=== PATIENT | male | born 1955 | race Caucasian/White ===

== ENCOUNTER 2017-08-26 11:10 | Inpatient (IN) | payer OTHER ==
[~2017-08-26] VITALS: Ht 170.2 cm; Wt 124.5 kg
[~2017-08-26 11:10] MED LIST: GOOD SENSE IBU200 MG PO; KEFLEX 250MG C250 MG PO; LISINOPRIL10 MG PO
--- NOTE | 2017-08-26 12:06 | RADIOLOGY REPORT ---
EXAMINATION: XR CHEST CLINICAL INFORMATION: Improved alignment. Pulmonary symptoms. COMPARISON: Previous chest x-ray most recent May 2015 TECHNIQUE: 2 views of the chest were obtained. FINDINGS: The cardiac silhouette is enlarged but stable. The lung volumes are low. Hilar markings are prominent. It is uncertain whether this is related to low lung volumes. The lungs are otherwise clear. There is no pleural effusion or pneumothorax. Bony structures are unremarkable. IMPRESSION: Stable enlargement of the cardiac silhouette. Low lung volumes. Prominent hilar markings, question related to low lung volumes.
--- NOTE | 2017-08-26 14:40 | ED GENERAL ADULT ---
See Addendum History of Present Illness General Chief Complaint: General Adult Stated Complaint: +FLU "STILL HAVE A COUGH" Source: patient, family Exam Limitations: no limitations Vital Signs & Intake/Output Vital Signs & Intake/Output Vital Signs Date Time Temp Pulse Resp B/P B/P Pulse O2 O2 Flow FiO2 Mean Ox Delivery Rate 08/27 0842 Room Air Room Air 08/27 0800 Nasal 2.0L Cannula 08/27 0713 98.7 101 20 144/100 94 Nasal 2.0L Cannula 08/26 2355 100.2 08/26 2335 93 Nasal 2.0L Cannula 08/26 2318 100.2 113 22 132/88 93 Nasal 3.0L Cannula 08/26 2241 101.2 122 19 159/88 98 Room Air 08/26 2106 100.9 111 20 151/69 95 Room Air 08/26 1722 110 22 181/90 94 Room Air 08/26 1637 91 08/26 1537 99.0 114 32 192/100 92 Room Air 08/26 1447 Room Air ED Intake and Output 08/27 0000 08/26 1200 Intake Total 360 Output Total 300 Balance 60 Intake, Oral 360 Output, Urine 300 Patient 274 lb 275 lb Weight Weight Reported by Patient Measurement Method Allergies Coded Allergies: NO KNOWN ALLERGIES (06/01/15) Triage Note: PER PT BEEN OUT OF WORK SINCE LAST SATURDAY AND COUGH WANT TO BE CHECKED FOR FLU. ALSO RT KNEE LOCKED UP LAST WEEK AND CANT WT BEAR Triage Nurses Notes Reviewed? yes Onset: Gradual Duration: week(s): (1.5) Timing: remote history Injury Environment: home Severity: moderate Severity Numbers: 6 HPI: Patient is a 62-year-old male with history of dependent edema, hypertension presenting to the emergency department should complaint of intermittently productive cough, slight shortness of breath and generalized malaise has been going for the past one and half weeks. Patient reports that he had flulike symptoms approximately one and a half weeks ago with body aches chills. He reports that he had an intermittent cough during a period of time. He reports that the fevers and chills and body aches resolved after several days and then the cough persisted. Patient came in today for evaluation of persistent cough. Worse when laying flat. Patient denies any increasing lower extremity swelling. No chest pain or palpitations. Patient does report intermittent shortness of breath, worse with coughing. Also reporting right knee pain after twisting it a few days ago. Denies any actual falls. No numbness or tingling. Denies any back pain arm pain and jaw pain. Eating and drinking without difficulties. (Marisol Kumar) Reconcile Medications Ibuprofen 200 MG TAB 2 TAB PO PRN PAIN (Reported) Lisinopril 10 MG TAB 1 TAB PO DAILY High blood pressure (Arianna LE,Danisha) Past History Travel History Traveled to [place] past 21 day No Medical History Any Pertinent Medical History? 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 No (Marisol Kumar) Review of Systems Review of Systems Constitutional: Reports: see HPI, malaise. Comments Review of systems: See HPI, All other systems negative. Constitutional, no weight loss HEENT: No visual changes no sore throat no congestion Cardiovascular: No chest pain ,palpitation Skin, no jaundice no rashes Respiratory: No hemoptysis GI: No nausea no vomiting : No dysuria No hematuria Muscle skeletal: no back pain, no neck pain, Neurologic: No numbness no confusion no headaches Psych: No stress anxiety or depression,. Heme/endocrine: No bruising no bleeding no polyuria or polydipsia Immunology: No splenectomy or history of AIDS (Marisol Kumar) Physical Exam Physical Exam General Appearance: alert, awake, mild distress Comments: Obese person, in mild/mod distress HEENT: Pupils equally round and reactive to light and accommodation. Nose is atraumatic. External auditory canal and Tympanic membranes clear. Pharynx normal. No swelling or edema. Neck: Normal inspection, full range of motion. Back: Nontender Cardiovascular: Regular rate and rhythms no murmurs rubs or gallops, normal JVP Respiratory: Chest nontender. Moderate respiratory distress.menaced breath sounds bilaterally to auscultation. Increased work of breathing. Use of abdominal wall muscles for breathing. Abdomen: Soft, obese, nontender nondistended, no appreciable organomegaly. Normal bowel sounds. Extremity: 3 plus plus pitting edema in the lower extremities bilaterally. No calf pain to palpation bilaterally. Chronic venous stasis changes noted in the lower extremities bilaterally. Healing scab-like lesion approximately 5 cm in size, circular noted on the anterior left ramos just above the anterior ankle. Neuro: Alert oriented x3, motor sensory normal, cranial nerves II through XII grossly intact. Skin: No appreciable rash on exposed skin, skin is warm and dry. Psych: Mood and affect is normal, memory and judgment is normal. Core Measures ACS in differential dx? Yes CVA/TIA Diagnosis: No Sepsis Present: No Sepsis Focused Exam Completed? No (Cleo MONTERROSO,Marisol) Progress Differential Diagnoses I considered the following diagnoses in my evaluation of the patient: Bronchitis, pneumonia, pulmonary embolus, ACS, DVT, CHF, electrolyte abnormality , lung CA Plan of Care: Orders Procedure Date/time Status CBC WITHOUT DIFFERENTIAL 08/28 1149 Active BASIC ELECTROLYTES PLUS BUN&CR 08/28 1149 Active Regular Diet 08/27 D Active Nothing by Mouth 08/27 B Complete ECHOCARDIOGRAM 08/27 2116 Active PARTIAL THROMBOPLASTIN TIME 08/27 1010 Complete CULTURE,URINE 08/27 0950 Active URINALYSIS 08/27 0950 Active RT: Reevaluation 08/27 0841 Active RT: Evaluation 08/27 0841 Active GLYCOSYLATED HGB 08/27 0600 Complete CBC WITHOUT DIFFERENTIAL 08/27 0600 Complete Heparin Drip- AFIB/FLUTTER/PE/ 08/27 0431 Active URIC ACID 08/27 0415 Complete LIPID PANEL 08/27 0415 Complete HEPATITIS PANEL 08/27 0415 Complete BASIC ELECTROLYTES PLUS BUN&CR 08/27 0415 Complete TROPONIN LEVEL 08/27 0400 Complete EKG 08/27 0400 Active PARTIAL THROMBOPLASTIN TIME 08/27 0150 Complete LOWER RESPIRATORY CULTURE 08/27 0056 Active US-COMPLETE ABDOMEN 08/27 UNK Active THERAPIST ORDERS 08/27 UNK Complete Change service to 08/27 UNK Active Lab Add-on Test 08/27 UNK Active Vital Signs 08/26 233 Active Teach/Educate 08/26 2334 Active Pain Treatment and Response 08/26 2334 Active Nutritional Intake, Monitor 08/26 2334 Active Isolation 08/26 2334 Active Intake & Output 08/26 2334 Active Patient Care Conference 08/26 2334 Active Activity/Ambulation 08/26 2334 Active BLOOD CULTURE 08/26 2251 Active TROPONIN LEVEL 08/26 220 Complete SODIUM 08/26 220 Complete EKG 08/26 220 Active Intake & Output 08/26 2137 Active Pathway - chart 08/26 2110 Active House Staff 08/26 2110 Active Patient Data 08/26 2110 Active Patient Data 08/26 2032 Active ED Holding Orders 08/26 1934 Active Admit to inpatient 08/26 193 Active Vital Signs 08/26 193 Active Code Status 08/26 193 Active D-DIMER 08/26 1620 Complete PARTIAL THROMBOPLASTIN TIME 08/26 1556 Complete PROTHROMBIN TIME 08/26 1556 Complete Telemetry/Churn Tender 08/26 1550 Active TROPONIN LEVEL 08/26 1550 Complete COMPREHENSIVE METABOLIC PANEL 08/26 1550 Complete CBC WITHOUT DIFFERENTIAL 08/26 1550 Complete B-TYPE NATRIURETIC PEP (BNP) 08/26 1550 Complete EKG 08/26 1550 Active TRC EVALUATION (GEN) 08/26 UNK Complete VTE Mechanical Prophylaxis 08/26 UNK Active Current Medications Sig/Laya Start time Last Medication Dose Stop Time Status Admin Lisinopril 10 MG DAILY 08/27 1141 AC (Prinivil) Albuterol Sulfate 3 ML Q4P PRN 08/27 0900 AC (Proventil) Ibuprofen 800 MG 4 TIMES/DAY PRN 08/27 0715 AC (Motrin) Azithromycin 500 MG DAILY 08/26 2358 AC 08/27 (Zithromax) 0828 Dextrose/Water 250 ML (D5W) Ceftriaxone Sodium 1,000 MG DAILY 08/26 2358 AC 08/27 (Rocephin) 0829 Heparin Sodium 25,000 UNIT Q24H 08/26 191 AC 08/26 (Porcine) 1950 (Heparin) Sodium Chloride 500 ML Laboratory Tests 08/27/17 1110: APTT 41 H 08/27/17 1105: Urine Color Pending, Urine Clarity Pending, Urine pH Pending, Ur Specific Creola Pending, Urine Protein Pending, Urine Ketones Pending, Urine Nitrite Pending, Urine Bilirubin Pending, Urine Urobilinogen Pending, Ur Leukocyte Esterase Pending, Ur Microscopic SEDIMENT EXAMINED, Urine RBC Pending, Urine Hemoglobin Pending, Urine Glucose Pending 08/27/17 0600: Hemoglobin A1c 5.7 08/27/17 0415: Sodium Cancelled, Potassium Cancelled, Chloride Cancelled, Carbon Dioxide Cancelled, Anion Gap Cancelled, BUN Cancelled, Creatinine Cancelled, BUN/ Creatinine Ratio Cancelled 08/27/17414: Anion Gap 14, Estimated GFR > 60, BUN/Creatinine Ratio 20.0, Uric Acid 6.5, Troponin I 0.04, Triglycerides 91, Cholesterol 131, LDL Cholesterol, Calc 83, HDL Cholesterol 30 L, Cholesterol/HDL Ratio 4, CBC w Diff NO MAN DIFF REQ, RBC 4.78, MCV 84.8, MCH 27.0, MCHC 31.9 L, RDW 15.3 H, MPV 7.6, Gran % 75.1, Lymphocytes % 9.8 L, Monocytes % 12.6 H, Eosinophils % 2.1, Basophils % 0.4, Absolute Granulocytes 12.6 H, Absolute Lymphocytes 1.7, Absolute Monocytes 2.1 H, Absolute Eosinophils 0.4, Absolute Basophils 0.1, Hepatitis A IgM Ab NONREACTIVE, Hep Bs Antigen NONREACTIVE, Hep B Core IgM Ab Conf NONREACTIVE, Hepatitis C Antibody NONREACTIVE 08/27/17 0215: APTT 27 08/26/17 2218: Troponin I 0.04 08/26/17 1620: Anion Gap 17 H, Estimated GFR > 60, BUN/Creatinine Ratio 21.3, Glucose 120 H, Calcium 9.2, Total Bilirubin 1.8 H, AST 72 H, ALT 132 H, Alkaline Phosphatase 273 H, Troponin I 0.02, Ysx-C-Aodswsldiwg Pept 1850 H, Total Protein 7.1, Albumin 3.6, Globulin 3.5, Albumin/Globulin Ratio 1.0 L, PT 14.9 H, INR 1.42 H, APTT 31, D-Dimer High Sensitivty 858 H, CBC w Diff MAN DIFF ORDERED, RBC 4.87, MCV 84.8, MCH 27.4, MCHC 32.3 L, RDW 15.3 H, MPV 7.3 L, Gran % 84.3 H, Lymphocytes % 6.7 L, Monocytes % 8.3, Eosinophils % 0.7, Basophils % 0, Absolute Granulocytes 15.1 H, Segmented Neutrophils 81 H, Absolute Lymphocytes 1.2, Lymphocytes 8 L, Monocytes 9, Absolute Monocytes 1.5 H, Eosinophils 1, Absolute Eosinophils 0.1, Basophils 1, Absolute Basophils 0, Platelet Estimate VERIFIED BY SMEAR, Normocytic RBCs VERIFIED, Normochromic RBCs VERIFIED 08/26/17 1550: D-Dimer High Sensitivty Cancelled Microbiology 08/27 1105 URINE ROUT: Urine Culture - RECD 08/27 55 LOWER RESP: Respiratory Culture - COLB 08/27 55 LOWER RESP: Gram Stain - COLB 08/26 2253 BLOOD: Blood Culture - RES 08/26 2243 BLOOD: Blood Culture - RES Patient informed of all lab work results and imaging study results. IV heparin initiated secondary to pulmonary embolus. Patient reports that he did receive some relief with breathing treatment. No signs of hepatomegaly on CT scan. No signs of gallstones or dilated common bile duct. Patient did deny EtOH use. Diagnostic Imaging: Viewed by Me: Radiology Read. Discussed w/RAD: Radiology Read. Radiology Impression: PRESENT AGE: 62 PATIENT ACCOUNT NO: [id number] : 54 LOCATION: [facility] ORDERING PHYSICIAN: Marisol MONTERROSO SERVICE DATE: EXAM TYPE: RAD - XRY-KNEE COMPLETE RIGHT EXAMINATION: XR KNEE, RIGHT CLINICAL INFORMATION: Pain status post twisting of the knee COMPARISON: None TECHNIQUE: Four views of the right knee. FINDINGS: Mild to moderate lateral compartment joint space narrowing. Small to moderate suprapatellar joint effusion. There is dystrophic calcification of the patellar tendon. Osteopenia. No acute fracture or dislocation seen. IMPRESSION: No acute osseous abnormality. Small to moderate suprapatellar joint effusion. Lateral compartment degenerative arthrosis. Dystrophic calcifications within the patellar tendon. DICTATED BY: Pb Simon MD DATE/TIME DICTATED:08/26/171556 DOUBLE CUT SAWYER:KAR DATE/TIME TRANSCRIBED:08/26/171556 CONFIDENTIAL, DO NOT COPY WITHOUT APPROPRIATE AUTHORIZATION. <Electronically signed in Other Vendor System> SIGNED BY: Pb Simon MD 08/26/17 1603, PATIENT: SHA QUINTANA PRESENT AGE: 62 PATIENT ACCOUNT NO: [id number] : 54 LOCATION: ER ORDERING PHYSICIAN: Marisol MONTERROSO SERVICE DATE: 08/26/17170 EXAM TYPE: CAT - CT ABD & PELVIS W IV CONTRAST; CTA CHEST-PULMONARY EMBOLISM EXAMINATION: CT CHEST, ABDOMEN AND PELVIS WITH CONTRAST CLINICAL INFORMATION: Reason for Study:
Presumptive Dx: RO PE
Signs Symptoms: SOB , TACHY
. COMPARISON: No pertinent prior studies are available for comparison. TECHNIQUE: Multidetector volumetric imaging was performed from the thoracic inlet through the pubic symphysis following administration of oral and 100 mL Omnipaque 300 intravenous contrast. Sagittal and coronal reformatted images were obtained on the technologist workstation. DLP: 2132.91 mGy-cm FINDINGS: CHEST: VASCULAR STRUCTURES: Linear filamentous appearing filling defect noted in the anterior segmental right lower lobe pulmonary artery (series 2 image 200) consistent with acute pulmonary embolism. No evidence of central thrombosis. Aorta is within normal limits. Atherosclerotic disease with intimal calcification of left anterior descending coronary artery.. LUNG: Patchy groundglass opacification mosaic perfusion bilateral lungs.. Atelectatic changes noted in the lingular segment. Minor scarring. No acute airspace opacity. Subpleural partially fatty nodular opacity lingular segment (series 3 image 29) measuring approximately 0.8 cm.. MEDIASTINUM: Enlarged lymph nodes posterior mediastinum along the right lateral aspect of the esophagus measuring approximately 0.8 cm in short axis. (Series 201 image 64). Lymph node demonstrates subtle central low-attenuation (series 4 image 11). Mild prominence of the hilar nodes without any gross lymphadenopathy. Mildly enlarged subcarinal lymph node. PERICARDIUM/PLEURA: No significant effusion. No pleural mass or thickening. CHEST WALL/AXILLA: Unremarkable. ABDOMEN/PELVIS: LIVER, GALLBLADDER, BILIARY TREE: The liver is normal in size, shape, and attenuation. No focal hepatic lesion or biliary ductal dilatation is present. No evidence of cholelithiasis or acute cholecystitis. Common bile duct is within normal limits. PANCREAS: Punctate calcification noted in the body and tail of the pancreas may represent sequela of prior pancreatitis. SPLEEN: Unremarkable. ADRENAL GLANDS: Focal prominence of the left adrenal gland measuring approximately 1.6 cm. This represents an interval change. Dedicated adrenal CT scan or MRI recommended. KIDNEYS AND URETERS: Punctate nonobstructing calculi right kidney. No evidence of obstructive uropathy. Cortical low-attenuation mid to lower left kidney too small to be accurately characterize. BLADDER: Unremarkable. GASTROINTESTINAL TRACT: Colonic diverticulosis. No evidence of acute diverticulitis. Bilateral inguinal hernia, left greater than right containing loop of sigmoid colon. Hernia sac demonstrates white matter with no definite evidence of incarceration or strangulation. Fat-containing right inguinal hernia. Fat-containing umbilical hernia. No definite evidence of acute bowel pathology. LYMPHOVASCULAR STRUCTURES : Minor prominence of the peripancreatic and epigastric lymph nodes. No gross lymphadenopathy. Enlarged probably reactive lymph nodes bilateral inguinal regions, left greater than right. Some of the nodes demonstrate fatty hilum... PELVIC VISCERA: Enlarged prostate gland measuring approximately 5.2 cm. OSSEUS STRUCTURES: Degenerative changes lower thoracic and lumbar spine. No acute osseous abnormality. IMPRESSION: 1. Acute pulmonary embolism heterogeneous segment right lower lobe pulmonary artery. 2.. Mosaic perfusion bilateral lungs. Subpleural partially fatty-appearing nodular opacity lingular segment measuring 0.8 cm. Close monitoring with follow-up CT chest in [address] recommended. 3. Enlarged posterior mediastinal right paraesophageal lymph nodes.. Limited assessment of the adjacent esophagus. Clinical correlation and if needed endoscopic evaluation may be of value. 4. Enlarged subcarinal lymph node. 5. Punctate nonobstructing right renal calculi. 6. Focal enlargement left adrenal gland measuring 1.6 cm represents an interval change. It can be further assessed with dedicated adrenal CT scan or MRI. 7. Left inguinal hernia containing loop of sigmoid colon. No gross evidence of strangulation. Fat- containing right inguinal hernia. 8. Prominent external iliac and bilateral inguinal lymph nodes may represent reactive change. Clinical correlation and monitoring recommended. Critical results discussed with Dr. Gallo at 6:35 PM on 08/26/2017. DICTATED BY: Zuleika Moore MD DATE/TIME DICTATED:08/26/171816 DOUBLE CUT SAWYER:KAR DATE/TIME TRANSCRIBED:08/26/171816 CONFIDENTIAL, DO NOT COPY WITHOUT APPROPRIATE AUTHORIZATION. <Electronically signed in Other Vendor System> SIGNED BY: Zuleika Moore MD 08/26/17 Initial ED EKG: sinus tachycardia at 114 bpm, nonspecific T-wave changes in the lateral leads. (Marisol Kumar) Departure Departure Time of Disposition: 1915 Disposition: STILL A PATIENT Condition: Stable Clinical Impression Primary Impression: Pulmonary embolus Qualifiers: Pulmonary embolism type: other Chronicity: acute Acute cor pulmonale presence: without acute cor pulmonale Qualified Code: I26.99 - Other pulmonary embolism without acute cor pulmonale Secondary Impressions: Transaminitis Referrals: Bilori MD,Bilori (PCP/Family) Departure Forms: Customer Survey General Discharge Information Admission Note Spoke With: Dario Coulter MD Documentation of Exam: Documentation of any treatments & extenuating circumstances including Concerns Regarding Discharge (functional status, medication knowledge or non-compliance, living conditions, etc.) that warrant an admission rather than observation: Patient requiring IV heparinization for pulmonary embolism, telemetry monitoring secondary to tachycardia, cardiology and vascular consultation, medication management, discharge at this time is medically harmful secondary to likely out of worsening symptoms which could lead to . (Marisol Kumar) PA/FAN BLADE TRUER Co-Sign Statement Statement: ED Attending supervision documentation- [X] I saw and evaluated the patient. I have also reviewed all the pertinent lab results and diagnostic results. I agree with the findings and the plan of care as documented in the PA's/FAN BLADE TRUER's documentation. [X] I have reviewed the ED Record and agree with the PA's/FAN BLADE TRUER's documentation. [] Additions or exceptions (if any) to the PAs/FAN BLADE TRUER's note and plan are summarized below: [] (Arianna LE,Danisha) Critical Care Note Critical Care Note Critical Care Time: 30-74 min (Marisol Kumar)
--- NOTE | 2017-08-26 16:03 | RADIOLOGY REPORT ---
EXAMINATION: XR KNEE, RIGHT CLINICAL INFORMATION: Pain status post twisting of the knee COMPARISON: None TECHNIQUE: Four views of the right knee. FINDINGS: Mild to moderate lateral compartment joint space narrowing. Small to moderate suprapatellar joint effusion. There is dystrophic calcification of the patellar tendon. Osteopenia. No acute fracture or dislocation seen. IMPRESSION: No acute osseous abnormality. Small to moderate suprapatellar joint effusion. Lateral compartment degenerative arthrosis. Dystrophic calcifications within the patellar tendon.
[2017-08-26 16:31] LABS: ABSOLUTE BASOPHIL COUNT 0 /CUMM (0.0-0.2); ABSOLUTE EOSINOPHIL COUNT 0.1 /CUMM (0.0-0.7); ABSOLUTE GRANULOCYTE CT 15.1 /CUMM (1.4-6.5); ABSOLUTE LYMPH COUNT 1.2 /CUMM (1.2-3.4); ABSOLUTE MONOCYTE COUNT 1.5 /CUMM (0.10-0.60); BASOPHIL % 0 % (0.0-2.0); EOSINOPHIL % 0.7 % (0-5); GRANULOCYTE % 84.3 % (42.2-75.2); HEMATOCRIT 41.3 % (42-52); MEAN CORPUSCULAR HGB 27.4 PG (27.0-31.0); MEAN CORPUSCULAR HGB CONC 32.3 G/DL (33.0-37.0); MEAN CORPUSCULAR VOLUME 84.8 FL (80.0-94.0); MEAN PLATELET VOLUME 7.3 FL (7.4-10.4); PLATELET COUNT 312 /CUMM (130-400); RBC DISTRIBUTION WIDTH 15.3 % (11.5-14.5); RED BLOOD CELL CT 4.87 /CUMM (4.70-6.10)
[2017-08-26 16:41] LABS: PT 14.9 SEC (9.4-12.5); PTT 31 SEC (25-37)
--- NOTE | 2017-08-26 18:55 | CT SCAN REPORT ---
EXAMINATION: CT CHEST, ABDOMEN AND PELVIS WITH CONTRAST CLINICAL INFORMATION: Reason for Study:
Presumptive Dx: RO PE
Signs Symptoms: SOB, TACHY
. COMPARISON: No pertinent prior studies are available for comparison. TECHNIQUE: Multidetector volumetric imaging was performed from the thoracic inlet through the pubic symphysis following administration of oral and 100 mL Omnipaque 300 intravenous contrast. Sagittal and coronal reformatted images were obtained on the technologist workstation. DLP: 2132.91 mGy-cm FINDINGS: CHEST: VASCULAR STRUCTURES: Linear filamentous appearing filling defect noted in the anterior segmental right lower lobe pulmonary artery (series 2 image 200) consistent with acute pulmonary embolism. No evidence of central thrombosis. Aorta is within normal limits. Atherosclerotic disease with intimal calcification of left anterior descending coronary artery.. LUNG: Patchy groundglass opacification mosaic perfusion bilateral lungs.. Atelectatic changes noted in the lingular segment. Minor scarring. No acute airspace opacity. Subpleural partially fatty nodular opacity lingular segment (series 3 image 29) measuring approximately 0.8 cm.. MEDIASTINUM: Enlarged lymph nodes posterior mediastinum along the right lateral aspect of the esophagus measuring approximately 0.8 cm in short axis. (Series 201 image 64). Lymph node demonstrates subtle central low-attenuation (series 4 image 11). Mild prominence of the hilar nodes without any gross lymphadenopathy. Mildly enlarged subcarinal lymph node. PERICARDIUM/PLEURA: No significant effusion. No pleural mass or thickening. CHEST WALL/AXILLA: Unremarkable. ABDOMEN/PELVIS: LIVER, GALLBLADDER, BILIARY TREE: The liver is normal in size, shape, and attenuation. No focal hepatic lesion or biliary ductal dilatation is present. No evidence of cholelithiasis or acute cholecystitis. Common bile duct is within normal limits. PANCREAS: Punctate calcification noted in the body and tail of the pancreas may represent sequela of prior pancreatitis. SPLEEN: Unremarkable. ADRENAL GLANDS: Focal prominence of the left adrenal gland measuring approximately 1.6 cm. This represents an interval change. Dedicated adrenal CT scan or MRI recommended. KIDNEYS AND URETERS: Punctate nonobstructing calculi right kidney. No evidence of obstructive uropathy. Cortical low-attenuation mid to lower left kidney too small to be accurately characterize. BLADDER: Unremarkable. GASTROINTESTINAL TRACT: Colonic diverticulosis. No evidence of acute diverticulitis. Bilateral inguinal hernia, left greater than right containing loop of sigmoid colon. Hernia sac demonstrates white matter with no definite evidence of incarceration or strangulation. Fat-containing right inguinal hernia. Fat-containing umbilical hernia. No definite evidence of acute bowel pathology. LYMPHOVASCULAR STRUCTURES: Minor prominence of the peripancreatic and epigastric lymph nodes. No gross lymphadenopathy. Enlarged probably reactive lymph nodes bilateral inguinal regions, left greater than right. Some of the nodes demonstrate fatty hilum... PELVIC VISCERA: Enlarged prostate gland measuring approximately 5.2 cm. OSSEUS STRUCTURES: Degenerative changes lower thoracic and lumbar spine. No acute osseous abnormality. IMPRESSION: 1. Acute pulmonary embolism heterogeneous segment right lower lobe pulmonary artery. 2.. Mosaic perfusion bilateral lungs. Subpleural partially fatty-appearing nodular opacity lingular segment measuring 0.8 cm. Close monitoring with follow-up CT chest in [address] recommended. 3. Enlarged posterior mediastinal right paraesophageal lymph nodes.. Limited assessment of the adjacent esophagus. Clinical correlation and if needed endoscopic evaluation may be of value. 4. Enlarged subcarinal lymph node. 5. Punctate nonobstructing right renal calculi. 6. Focal enlargement left adrenal gland measuring 1.6 cm represents an interval change. It can be further assessed with dedicated adrenal CT scan or MRI. 7. Left inguinal hernia containing loop of sigmoid colon. No gross evidence of strangulation. Fat-containing right inguinal hernia. 8. Prominent external iliac and bilateral inguinal lymph nodes may represent reactive change. Clinical correlation and monitoring recommended. Critical results discussed with Dr. Gallo at 6:35 PM on 08/26/2017.
--- NOTE | 2017-08-26 20:13 | ULTRASOUND REPORT ---
EXAMINATION: US TRIPLEX OF LOWER EXTREMITIES, BILATERAL CLINICAL INFORMATION: PE to rule out DVT. COMPARISON: None available per TECHNIQUE: Color-flow triplex imaging with spectral analysis and compression Doppler were performed on the lower extremities. FINDINGS: Respiratory variation, normal compression and augmented flow are noted throughout the lower extremities. The visualized common femoral vein, superficial femoral vein, profunda femoral vein, popliteal vein and midcalf peroneal and posterior tibial venous segments show no evidence of deep venous thrombosis. There is a 7.7 x 2.0 x 2.5 cm right Dao's cyst and there is a 1.5 x 0.8 x 0.8 cm left Dao's cyst. IMPRESSION: - There is no evidence of deep venous thrombosis involving the lower extremities. - There is a 7.7 x 2.0 x 2.5 cm right Dao's cyst and there is a 1.5 x 0.8 x 0.8 cm left Dao's cyst.
--- NOTE | 2017-08-26 21:00 | History & Physical ---
Will Lewis MD 08/26/172058: General Information and HPI MD Statement: I have seen and personally examined SHA QUINTANA and documented this H&P. The patient is a 62 year old M who presented with a patient stated chief complaint of [cough and SOB]. Source of Information: patient Exam Limitations: no limitations History of Present Illness: Patient is a 62-year-old male with a PMH significant for HTN, chronic lower extremity swelling, who presents complaining of approximately one week of productive cough and shortness of breath. Patient states that he had been treating with [id number] medication including NyQuil and Coricidin which initially provided relief however the symptoms then began to progressively worsened over the last several days. Patient reports greenish sputum production and shortness of breath mostly on exertion. During this time patient reports to being on line with his home medications including lisinopril and furosemide. He also notes that approximately 3 days ago he awoke with sharp 5/10 pain of his right knee she states limits his ability to walk normally. He states that he does not recall any trauma to the area. Over the last month patient states that he has been trying to lose weight on a low-carb, low sodium, high-protein diet and has lost 40 pounds. He attributes this solely to the diet and being active. He denies any chest pain, palpitations, nausea, vomiting, fever, chills. His was apparently sick with URI like symptoms 23 weeks ago. Allergies/Medications Allergies: Coded Allergies: NO KNOWN ALLERGIES (06/01/15) Past History Travel History Traveled to [place] past 21 day No Medical History Neurological: NONE EENT: NONE Cardiovascular: hypertension Respiratory: NONE Gastrointestinal: NONE Hepatic: NONE Renal: NONE Musculoskeletal: NONE Psychiatric: NONE Endocrine: NONE Blood Disorders: NONE Cancer(s): NONE IT RISK ANALYST/Reproductive: NONE Other Medical Hx: Eczema Surgical History Surgical History: non-contributory Past Family/Social History Family History Relations & Conditions if any Relation not specified for: *No pertinent family history Psychosocial History Who Do You Live With? spouse Primary Language: [place] Citizen Smoking Status: Never Smoked ETOH Use: denies use Illicit Drug Use: denies illicit drug use Living Will? no Review of Systems Review of Systems Constitutional: Reports: see HPI. Denies: chills, diaphoresis, fever, malaise. EENTM: Denies: blurred vision, double vision, visual changes. Cardiovascular: Denies: chest pain, orthopena, palpitations, peripheral edema, syncope. Respiratory: Reports: cough, short of breath, sputum production. Denies: wheezing. GI: Denies: abdominal pain, bloating, diarrhea, melena, nausea, bloody stool, vomiting. Genitourinary: Reports: no symptoms. Musculoskeletal: Reports: joint pain (R knee). Skin: Reports: no symptoms. Neurological/Psychological: Reports: no symptoms. Exam & Diagnostic Data Last 24 Hrs of Vital Signs/I&O Vital Signs Date Time Temp Pulse Resp B/P B/P Pulse O2 O2 Flow FiO2 Mean Ox Delivery Rate 08/26 2355 100.2 08/26 2335 93 Nasal 2.0L Cannula 08/26 2318 100.2 113 22 132/88 93 Nasal 3.0L Cannula 08/26 2241 101.2 122 19 159/88 98 Room Air 08/26 2106 100.9 111 20 151/69 95 Room Air 08/26 1722 110 22 181/90 94 Room Air 08/26 1637 91 08/26 1537 99.0 114 32 192/100 92 Room Air 08/26 1447 Room Air 08/26 1204 99.2 90 22 200/117 96 Intake & Output 08/27 0800 08/27 0000 05 1600 Intake Total 360 Output Total 300 Balance 60 Intake, Oral 360 Output, Urine 300 Patient 274 lb 275 lb Weight Weight Reported by Patient Measurement Method Physical Exam General Appearance Alert, Oriented X3, Cooperative, No Acute Distress Skin Temp/Moisture Exam: Warm/Dry HEENT Atraumatic, PERRLA, EOMI, Mucous Membr. moist/pink Neck Supple, No JVD, No thryomegaly Cardiovascular Normal S1, Normal S2, tachycardic, 110s Lungs diminshed breath sounds, diffuse rhonchi Abdomen Normal Bowel Sounds, Soft, No Tenderness, obese Neurological Normal Speech, Strength at 5/5 X4 Ext, Normal Tone, Sensation Intact, Cranial Nerves 3-12 NL Extremities chronic venous stasis changes bilaterally, R lateral knee TTP, decreased active ROM of the R knee 2/2 pain Last 24 Hrs of Labs/Tony: Laboratory Tests 08/27/17 0415: Sodium Cancelled, Potassium Cancelled, Chloride Cancelled, Carbon Dioxide Cancelled, Anion Gap Cancelled, BUN Cancelled, Creatinine Cancelled, BUN/ Creatinine Ratio Cancelled 08/27/17 0415: Sodium Pending, Potassium Pending, Chloride Pending, Carbon Dioxide Pending, Anion Gap Pending, BUN Pending, Creatinine Pending, BUN/Creatinine Ratio Pending , Troponin I Pending, CBC w Diff Pending, WBC Pending, RBC Pending, Hgb Pending, Hct Pending, MCV Pending, MCH Pending, MCHC Pending, RDW Pending, Plt Count Pending, MPV Pending 08/27/17 0215: APTT 27 08/26/17 2218: Troponin I 0.04 08/26/17 1620: Anion Gap 17 H, Estimated GFR > 60, BUN/Creatinine Ratio 21.3, Glucose 120 H, Calcium 9.2, Total Bilirubin 1.8 H, AST 72 H, ALT 132 H, Alkaline Phosphatase 273 H, Troponin I 0.02, Bqv-G-Lpkixiquvnu Pept 1850 H, Total Protein 7.1, Albumin 3.6, Globulin 3.5, Albumin/Globulin Ratio 1.0 L, PT 14.9 H, INR 1.42 H, APTT 31, D-Dimer High Sensitivty 858 H, CBC w Diff MAN DIFF ORDERED, RBC 4.87, MCV 84.8, MCH 27.4, MCHC 32.3 L, RDW 15.3 H, MPV 7.3 L, Gran % 84.3 H, Lymphocytes % 6.7 L, Monocytes % 8.3, Eosinophils % 0.7, Basophils % 0, Absolute Granulocytes 15.1 H, Segmented Neutrophils 81 H, Absolute Lymphocytes 1.2, Lymphocytes 8 L, Monocytes 9, Absolute Monocytes 1.5 H, Eosinophils 1, Absolute Eosinophils 0.1, Basophils 1, Absolute Basophils 0, Platelet Estimate VERIFIED BY SMEAR, Normocytic RBCs VERIFIED, Normochromic RBCs VERIFIED 08/26/17 1550: D-Dimer High Sensitivty Cancelled Microbiology 08/27 55 LOWER RESP: Respiratory Culture - ORD 08/27 55 LOWER RESP: Gram Stain - ORD 08/26 2253 BLOOD: Blood Culture - RECD 08/26 2243 BLOOD: Blood Culture - RECD 08/26 1210 NASOPHARYN: Influenza Virus A & B Rapid Smear - COMP Diagnostic Data EKG Results sinus tachycardia, HR 114, QTc 463 CXR Results Stable enlargement of the cardiac silhouette. Low lung volumes. Prominent hilar markings, question related to low lung volumes. Other Results CTA chest, abd, pelvis 1. Acute pulmonary embolism heterogeneous segment right lower lobe pulmonary artery. 2.. Mosaic perfusion bilateral lungs. Subpleural partially fatty-appearing nodular opacity lingular segment measuring 0.8 cm. Close monitoring with follow-up CT chest in [address] recommended. 3. Enlarged posterior mediastinal right paraesophageal lymph nodes.. Limited assessment of the adjacent esophagus. Clinical correlation and if needed endoscopic evaluation may be of value. 4. Enlarged subcarinal lymph node. 5. Punctate nonobstructing right renal calculi. 6. Focal enlargement left adrenal gland measuring 1.6 cm represents an interval change. It can be further assessed with dedicated adrenal CT scan or MRI. 7. Left inguinal hernia containing loop of sigmoid colon. No gross evidence of strangulation. Fat-containing right inguinal hernia. 8. Prominent external iliac and bilateral inguinal lymph nodes may represent reactive change. Clinical correlation and monitoring recommended. R Knee XR No acute osseous abnormality. Small to moderate suprapatellar joint effusion. Lateral compartment degenerative arthrosis. Dystrophic calcifications within the patellar tendon. Venous doppler US of LEs No DVT no evidence of deep venous thrombosis involving the lower extremities. There is a 7.7 x 2.0 x 2.5 cm right Dao's cyst and there is a 1.5 x 0.8 x 0.8 cm left Dao's cyst. Assessment/Plan Assessment: Patient is a 62-year-old male with a PMH significant for hyper tension presents complaining of approximately one week of productive cough and shortness of breath. He has had a sick contact recently. D-dimer was elevated. CT scan revealed right lower lobe PE as well as a suspicious nodular opacity and lymphadenopathy of the paraesophageal, mediastinal, and subcarinal region. Left knee x-ray showed no osseous malformation or pathology. Lungs were significant for leukocytosis and transaminitis. The patient has had chronic transaminitis VS on admission: T 99.2 (MAXIMUM TEMPERATURE 101.2), HR 90, RR 22, BP 200/17 ( trended down to 132/88), pulse ox 96% on room air Labs on admission: WBC 18, neutrophils 81, H/H 13.3/41.3, platelet 312, sodium 149, ALT 132, AST 72, alkaline phosphatase 273, proBNP 1850, d-dimer 858 Patient received IV morphine in the ED and was started on IV heparin after stool guaiac was showed to be negative. He also received a breathing treatment. Problem list #Right lower lobe PE #Possible PNA or URI #Right knee pain #Incidental finding of enlarged right adrenal gland, lymphadenopathy, and nonobstructing right renal calculus Plan -Admit to telemetry -Continue telemetry monitoring -Rule out ACS with troponins EKG -Echocardiogram -Pulm consult to be placed in the a.m. -Continue IV heparin -Azithromycin and ceftriaxone -Right upper quadrant ultrasound -Consider inpatient versus outpatient Heme/onc workup as well as further imaging of right adrenal gland -Heart healthy diet -DVT prophylaxis: IV heparin, ALPS -CODE STATUS: Full code As Ranked By This Provider Problem List: 1. Pulmonary embolus Qualifiers Pulmonary embolism type: other Chronicity: acute Acute cor pulmonale presence: without acute cor pulmonale Qualified Code: I26.99 - Other pulmonary embolism without acute cor pulmonale 2. Leukocytosis 3. Transaminitis Core Measures/Misc (04/07) Acute Coronary Syndrome ACS Diagnosis: No Congestive Heart Failure Congestive Heart Failure Diagnosis No Cerebrovascular Accident CVA/TIA Diagnosis: No VTE (View Protocol) VTE Risk Factors Age>40 No Mechanical VTE Prophylaxis d/t N/A MechProphylax Ordered No VTE Pharm Prophylaxis d/t NA PharmProphylax ordered Sepsis (View protocol) Sepsis Present: No Lyn LE,Praveen 08/27/17 0044: General Information and HPI Allergies/Medications Home Med list Ibuprofen 200 MG TAB 2 TAB PO PRN PAIN (Reported) Lisinopril 10 MG TAB 1 TAB PO DAILY High blood pressure Resident Review Statement Resident Statement: examined this patient, discussed with compensation intern Other Findings: H Mr. Quintana is a 61-year-old male with past medical history of hypertension, chronic edema who presented to the emergency department complaining of general malaise, cough and SOB. Patient states that he has experienced a bad cold which has exacerbated his cough. States cought is productive in nature. Greenish Sputum. States he has been unable to catch his breath. States his was recently sick. Patient did take NyQuil and Coricidin for symptomatic relief. Patient does state that he's had a recent significant weight loss. Approximately 40 pounds. States that he's been on a low-carb high-protein low- salt diet. Patient also complains of right knee pain. Pain is rated at a 5 out of 10 severity. Described as sharp. Patient states his pain started approximately 3 days ago after he was lifting some heavy pallets and water containers. While in the ED, the patient was febrile up to 101. 6 Currently Employed at [employer].The patient denies any fever, chills, nausea, vomiting, He did endorse Wheezing. E: T: 99.2 RR: 22. BP 200/117--> 181/90. HR: 96 HEENT: Pupils equally round and reactive to light and accommodation. Nose is atraumatic. External auditory canal and Tympanic membranes clear. Pharynx normal. No swelling or edema. Neck: Normal inspection, full range of motion. Back: Nontender Cardiovascular: Regular rate and rhythms no murmurs rubs or gallops, normal JVP Respiratory: Chest nontender. No respiratory distress. Nasal Canula in place. Diffuse Rhonchi. Abdomen: Soft, obese, nontender nondistended, no appreciable organomegaly. Normal bowel sounds. Extremity: Choronic venous stasis changes, right lateral knee tender to touch. Decreased range of motion. Patient unable to elevate right lower extremity. Neuro: Alert oriented x3, motor sensory normal, cranial nerves II through XII grossly intact. Skin: No appreciable rash on exposed skin, skin is warm and dry. Psych: Mood and affect is normal, memory and judgment is normal. L: WBC 18.0 H&H 13.3/41.3. Platelets 312 Sodium 149 Potassium 3.9 BUN 17 Creatinine 0.8. BNP 1850 Initial Troponin: <0.01 I SERVICE DATE: 08/26/17 EXAM TYPE: RAD - XRY-CHEST XRAY, TWO VIEWS IMPRESSION: Stable enlargement of the cardiac silhouette. Low lung volumes. Prominent hilar markings, question related to low lung volumes. DICTATED BY: Alicia Han MD SERVICE DATE: 08/26/17 EXAM TYPE: RAD - XRY-KNEE COMPLETE RIGHT IMPRESSION: No acute osseous abnormality. Small to moderate suprapatellar joint effusion. Lateral compartment degenerative arthrosis. Dystrophic calcifications within the patellar tendon. SERVICE DATE: 08/26/17 EXAM TYPE: CAT - CT ABD & PELVIS W IV CONTRAST; CTA CHEST-PULMONARY EMBOLISM IMPRESSION: 1. Acute pulmonary embolism heterogeneous segment right lower lobe pulmonary artery. 2.. Mosaic perfusion bilateral lungs. Subpleural partially fatty-appearing nodular opacity lingular segment measuring 0.8 cm. Close monitoring with follow-up CT chest in [address] recommended. 3. Enlarged posterior mediastinal right paraesophageal lymph nodes.. Limited assessment of the adjacent esophagus. Clinical correlation and if needed endoscopic evaluation may be of value. 4. Enlarged subcarinal lymph node. 5. Punctate nonobstructing right renal calculi. 6. Focal enlargement left adrenal gland measuring 1.6 cm represents an interval change. It can be further assessed with dedicated adrenal CT scan or MRI. 7. Left inguinal hernia containing loop of sigmoid colon. No gross evidence of strangulation. Fat-containing right inguinal hernia. 8. Prominent external iliac and bilateral inguinal lymph nodes may represent reactive change. Clinical correlation and monitoring recommended. Critical results discussed with Dr. Gallo at 6:35 PM on 08/26/2017. DICTATED BY: [facility] SERVICE DATE: 08/26/17 EXAM TYPE: US - US-EXT BILAT VENOUS DOPPLER IMPRESSION: - There is no evidence of deep venous thrombosis involving the lower extremities. - There is a 7.7 x 2.0 x 2.5 cm right Dao's cyst and there is a 1.5 x 0.8 x 0.8 cm left Dao's cyst. EKG: Sinus tachycardia, HR 114, QTc 463 A/P Mr. Quintana is a 61-year-old male with past medical history of hypertension, chronic edema who presented to the emergency department complaining of general malaise, cough and SOB. His symptoms of shortness of breath is likely explained by pulmonary emboli which was found on CTA. Patient will likely have to be worked up for hypercoagulable state particularly given the fact that he recently lost a significant amount of weight. #Pulmonary Emoboli #Patchy groundglass opacification mosaic perfusion seen in bilateral lungs #Hypertensive Urgency. #Leukocytosis with increased Granolocytes #Hypernateremia #Transaminitis #Right Knee Pain Admit to telemetry. Continue on IV Heparin. Pulmonology consultation in am. Serial troponins and EKG till peak. If patient becomes hemodynamically unstable may require TPA. Echocardiogram Ceftriaxone and Azithromycin. RUQ Ultrasound to rule out acute pathology Monitor blood pressure in a.m. may use antihypertensives to maintain blood pressure below 180 systolic. Adequate pain management. PT/OT Diet: NPO for ultrasound in AM. Dvt PPX: Pm Heparin Patient is a full Code Dario Coulter 08/27/17 0958: Attending MD Review Statement Attending Statement Attending MD Statement: examined this patient, discuss w/resident/PA/GEAR HOBBER, agreed w/resident/PA/GEAR HOBBER, reviewed EMR data (avail), reviewed images, amended to note Attending Assessment/Plan: CC: Right knee locked up, and flulike symptoms with cough PMH: HTN Patient came to ER for progressive worsening of shortness of breath. Initially he started to have flulike symptoms with nasal congestion, nasal discharge, body ache, cough and shortness of breath, progressively symptoms worsened, he was getting more and more dyspnea on exertion, increased sputum production so he came to ER. He denies any chest pain, chest tightness he has chronic leg swelling for which he uses compression stockings, legs are not weeping anymore, no chronic wounds. Few days back he had noticed strain on his right knee after suddenly getting up, unable to walk and had been limping, not weightbearing right leg. He has 40 pound weight loss in last 1 month according to him, intentional. He denies any fever, chills, nausea, vomiting, diarrhea or constipation, no presyncopal episode or loss of consciousness. Vitals: T max 101.2 , pulse 114, RR 22, blood pressure 200/117, saturating 96% on room air On exam: A O 3, cooperative, moderate respiratory distress, neck supple, JVD normal, no lymphadenopathy, mucosa dry, no focal neurological deficit, chronic leg edema, chronic venous stasis dermatitis changes, no evidence of acute infection CVS: S1-S2, RRR. RS: Bilateral rhonchi. Abdomen: Soft, NT, ND, bowel sounds present. Restricted passive range of motion to 90 on right knee, mild swelling without any evidence of infection. Labs: WBC 18.0, hemoglobin 13.3, hematocrit 41.3, platelets 312, it was 84%, sodium 149, potassium 3.9, chloride 107, bicarbonate 25, BUN 17, creatinine 0.8, glucose 120, calcium 9.2, bilirubin 1.8, AST 72, ALT 132, alkaline phosphatase 273, troponin 0.02, proBNP 1850, INR 1.4 to, d-dimer 858, influenza negative X-ray right knee: No acute osseous abnormality. Small to moderate suprapatellar joint effusion. Lateral compartment degenerative arthrosis. Dystrophic calcifications within the patellar tendon. CTA chest: 1. Acute pulmonary embolism heterogeneous segment right lower lobe pulmonary artery. 2.. Mosaic perfusion bilateral lungs. Subpleural partially fatty-appearing nodular opacity lingular segment measuring 0.8 cm. Close monitoring with follow-up CT chest in [address] recommended. 3. Enlarged posterior mediastinal right paraesophageal lymph nodes.. Limited assessment of the adjacent esophagus. Clinical correlation and if needed endoscopic evaluation may be of value. 4. Enlarged subcarinal lymph node. CT abdomen and pelvis with contrast: 5. Punctate nonobstructing right renal calculi. 6. Focal enlargement left adrenal gland measuring 1.6 cm represents an interval change. It can be further assessed with dedicated adrenal CT scan or MRI. 7. Left inguinal hernia containing loop of sigmoid colon. No gross evidence of strangulation. Fat-containing right inguinal hernia. 8. Prominent external iliac and bilateral inguinal lymph nodes may represent reactive change. Clinical correlation and monitoring recommended. Assessment and plan 62-year-old male with past medical history of hypertension presented in ER for progressive worsening of flulike symptoms including nasal discharge, cough, shortness of breath, sputum production, gradually worsening dyspnea on exertion. He was worried about flu or pneumonia. On examination he has significant rhonchi , had fever spike in ER, hypertensive on arrival, blood pressure stabilized without much treatment. Along with his clinical diagnosis of bronchitis versus pneumonia is found to have pulmonary embolism on CTA. Even though patient's proBNP is elevated, there is no strain on ECG. Patient to hypoxia and shortness of breath appears more secondary to bronchitis than pulmonary embolism. Given his lymphadenopathy, weight loss of 40 pounds and pulmonary nodule of 0.8 cm, he needs outpatient follow-up for further evaluation of malignancy. DVT could be provoked secondary to less use of right leg but aren't DVT Doppler there is no such evidence.Restricted passive range of motion to 90 on right knee, mild swelling without any evidence of infection. + Pulmonary embolism + Bronchitis versus pneumonia + Right knee swelling + History of hypertension - Admit to telemetry - Continuous telemetry monitoring - Serial troponin and EKGs - Continue IV heparin - 2-D echocardiogram to rule out cardiac strain - Continue IV ceftriaxone and azithromycin - Continue nebulization treatment (patient felt significantly better with nebs) - Mucinex - Right knee ultrasound to evaluate for effusion - Follow blood cultures - Hold Lasix continue lisinopril
[2017-08-26 23:18] VITALS: BP 132/88
[2017-08-27 02:49] LABS: PTT 27 SEC (25-37)
[2017-08-27 04:35] LABS: ABSOLUTE BASOPHIL COUNT 0.1 /CUMM (0.0-0.2); ABSOLUTE EOSINOPHIL COUNT 0.4 /CUMM (0.0-0.7); ABSOLUTE GRANULOCYTE CT 12.6 /CUMM (1.4-6.5); ABSOLUTE LYMPH COUNT 1.7 /CUMM (1.2-3.4); ABSOLUTE MONOCYTE COUNT 2.1 /CUMM (0.10-0.60); BASOPHIL % 0.4 % (0.0-2.0); EOSINOPHIL % 2.1 % (0-5); GRANULOCYTE % 75.1 % (42.2-75.2); HEMATOCRIT 40.5 % (42-52); MEAN CORPUSCULAR HGB CONC 31.9 G/DL (33.0-37.0); MEAN CORPUSCULAR VOLUME 84.8 FL (80.0-94.0); MEAN PLATELET VOLUME 7.6 FL (7.4-10.4); PLATELET COUNT 310 /CUMM (130-400); RBC DISTRIBUTION WIDTH 15.3 % (11.5-14.5); RED BLOOD CELL CT 4.78 /CUMM (4.70-6.10); WHITE BLOOD CELL COUNT 16.8 /CUMM (4.8-10.8)
--- NOTE | 2017-08-27 06:56 | PN- Housestaff ---
Alesha Ma MD 08/27/17 0656: Subjective Follow-up For: Pulmonary embolism, transaminitis Complaints: no complaints Tele-Events Since Last Visit: Sinus rhythm heart rate 100 Subjective: Patient was seen and examined at bedside. Patient was sitting comfortably in his recliner. No overnight events. Offers no complaints. He denies his pain, shortness of breath, fever, cough, altered sensation, loss of consciousness, abdominal pain, hematuria. Review of Systems Constitutional: Reports: no symptoms. Cardiovascular: Reports: no symptoms. Respiratory: Reports: no symptoms. Gastrointestinal: Reports: no symptoms. Genitourinary: Reports: no symptoms. Musculoskeletal: Reports: no symptoms. Skin: Reports: no symptoms. Objective Last 24 Hrs of Vital Signs/I&O Vital Signs Date Time Temp Pulse Resp B/P B/P Pulse O2 O2 Flow FiO2 Mean Ox Delivery Rate 08/27 0713 98.7 101 20 144/100 94 Nasal 2.0L Cannula 08/26 2355 100.2 08/26 2335 93 Nasal 2.0L Cannula 08/26 2318 100.2 113 22 132/88 93 Nasal 3.0L Cannula 08/26 2241 101.2 122 19 159/88 98 Room Air 08/26 2106 100.9 111 20 151/69 95 Room Air / 1722 110 22 181/90 94 Room Air / 1637 91 08/26 1537 99.0 114 32 192/100 92 Room Air 08/26 1447 Room Air 08/26 1204 99.2 90 22 200/117 96 Intake & Output 08/27 1600 / 0800 02 0000 Intake Total 210 360 Output Total 350 300 Balance -140 60 Intake, IV 210 Intake, Oral 360 Output, Urine 350 300 Patient 274 lb Weight Weight Reported by Patient Measurement Method Physical Exam General Appearance: Alert, Oriented X3, Cooperative, No Acute Distress Skin: No Breakdown HEENT: Atraumatic, PERRLA, EOMI Cardiovascular: Normal S1, Normal S2, No Murmurs Lungs: Normal Air Movement Abdomen: Soft, No Tenderness, No Hepatospenomegaly Neurological: Normal Speech, Strength at 5/5 X4 Ext, Normal Tone, Sensation Intact Extremities: No Cyanosis, No Edema, Normal Pulses Vascular: Pulses Symmetrical Current Medications: Current Medications Sig/Laya Start time Last Medication Dose Route Stop Time Status Admin Acetaminophen 1,000 MG ONCE ONE 08/26 2300 DC 08/26 N/A 1 UNIT IV 08/26 2313 235 Albuterol Sulfate 3 ML ONCE ONE 08/26 1600 DC 08/26 INH 08/26 1601 1637 Azithromycin 500 MG DAILY 08/26 2358 AC 08/27 Dextrose/Water 250 ML IV 012 Ceftriaxone Sodium 1,000 MG DAILY 08/26 2358 AC 08/27 IV 0126 Heparin Sodium 9,337 UNIT BOLUS ONE 08/27 0406 DC 08/27 (Porcine) IV 08/27 040 0410 Heparin Sodium 25,000 UNIT Q24H 08/26 1914 AC 08/26 (Porcine) IV 1950 Sodium Chloride 500 ML Heparin Sodium 5,000 UNIT ONCE ONE 08/26 1914 DC 08/26 (Porcine) IV 08/26 1915 190 Heparin Sodium 0 .STK-MED ONE 08/26 1910 DC (Porcine) .ROUTE Ibuprofen 800 MG 4 TIMES/DAY PRN 08/27 0715 AC PO Influenza Virus 0.5 ML ONCE ONE 08/27 1000 AC Vaccine IM 08/27 1001 Ipratropium Salters 2.5 ML ONCE ONE 08/26 1600 DC 08/26 INH 08/26 1601 1637 Morphine Sulfate 0 .STK-MED ONE 08/26 2106 DC .ROUTE Morphine Sulfate 4 MG ONCE ONE 08/26 2100 DC 08/26 IV 08/26 210 2108 Morphine Sulfate 4 MG ONCE ONE 08/26 1745 DC 08/26 IV 08/26 1746 1741 Morphine Sulfate 0 .STK-MED ONE 08/26 174 DC .ROUTE Last 24 Hrs of Lab/Tony Results Last 24 Hrs of Labs/Mics: Laboratory Tests 08/27/17 0600: Hemoglobin A1c Pending 08/27/175: Sodium Cancelled, Potassium Cancelled, Chloride Cancelled, Carbon Dioxide Cancelled, Anion Gap Cancelled, BUN Cancelled, Creatinine Cancelled, BUN/ Creatinine Ratio Cancelled 08/27/175: Anion Gap 14, Estimated GFR > 60, BUN/Creatinine Ratio 20.0, Troponin I 0.04, Triglycerides Pending, Cholesterol Pending, LDL Cholesterol, Calc Pending, HDL Cholesterol Pending, Cholesterol/HDL Ratio Pending, CBC w Diff NO MAN DIFF REQ, RBC 4.78, MCV 84.8, MCH 27.0, MCHC 31.9 L, RDW 15.3 H, MPV 7.6, Gran % 75.1, Lymphocytes % 9.8 L, Monocytes % 12.6 H, Eosinophils % 2.1, Basophils % 0.4, Absolute Granulocytes 12.6 H, Absolute Lymphocytes 1.7, Absolute Monocytes 2.1 H, Absolute Eosinophils 0.4, Absolute Basophils 0.1, Hepatitis A IgM Ab Pending, Hep Bs Antigen Pending, Hep B Core IgM Ab Conf Pending, Hepatitis C Antibody Pending 08/27/17 0215: APTT 27 08/26/17 2218: Troponin I 0.04 08/26/17 1620: Anion Gap 17 H, Estimated GFR > 60, BUN/Creatinine Ratio 21.3, Glucose 120 H, Calcium 9.2, Total Bilirubin 1.8 H, AST 72 H, ALT 132 H, Alkaline Phosphatase 273 H, Troponin I 0.02, Ryt-D-Fketijwavsy Pept 1850 H, Total Protein 7.1, Albumin 3.6, Globulin 3.5, Albumin/Globulin Ratio 1.0 L, PT 14.9 H, INR 1.42 H, APTT 31, D-Dimer High Sensitivty 858 H, CBC w Diff MAN DIFF ORDERED, RBC 4.87, MCV 84.8, MCH 27.4, MCHC 32.3 L, RDW 15.3 H, MPV 7.3 L, Gran % 84.3 H, Lymphocytes % 6.7 L, Monocytes % 8.3, Eosinophils % 0.7, Basophils % 0, Absolute Granulocytes 15.1 H, Segmented Neutrophils 81 H, Absolute Lymphocytes 1.2, Lymphocytes 8 L, Monocytes 9, Absolute Monocytes 1.5 H, Eosinophils 1, Absolute Eosinophils 0.1, Basophils 1, Absolute Basophils 0, Platelet Estimate VERIFIED BY SMEAR, Normocytic RBCs VERIFIED, Normochromic RBCs VERIFIED 08/26/17 1550: D-Dimer High Sensitivty Cancelled Microbiology 08/27 55 LOWER RESP: Respiratory Culture - COLB 08/27 55 LOWER RESP: Gram Stain - COLB 08/26 2253 BLOOD: Blood Culture - RECD 08/26 2243 BLOOD: Blood Culture - RECD 08/26 1210 NASOPHARYN: Influenza Virus A & B Rapid Smear - COMP Assessment/Plan Assessment: This is a 62-year-old gentleman with past medical history of chronic bilateral leg swelling, hypertension on lisinopril and furosemide came to [facility] with complaints of cough and shortness of breath for past 1 week. He was found to have right lower lobe pulmonary embolism and was admitted to telemetry for monitoring and further evaluation. History-patient had a 41 pound weight loss in the past 1 month. Patient claims his weight loss related to low-carb high-protein diet which included a lot of protein shake. No weight loss supplements taken. Patient was admitted in 2015 for cellulitis at [facility]. During the admission patient had transaminitis CTA 1. Acute pulmonary embolism heterogeneous segment right lower lobe pulmonary artery 1. Pulmonary embolism on IV heparin Patient had a CTA on admission which shows right lower lobe pulmonary embolism. Ultrasound Doppler of lower legs was negative. Patient was started on IV heparin. We will continue anticoagulation. Echocardiogram to rule out any strain. On CT abdomen and pelvis patient has multiple lymph node enlargement and small pulmonary nodule. We will give outpatient pulmonology referral. 2. Right knee pain Patient has right knee pain for the past 3 days. Patient also gives history of gout in his right greater toe. [never been diagnosed] we will send a uric acid level. X-ray right knee shows suprapatellar effusion. Given his leukocytosis, fever we will get orthopedic consult to rule out any septic/gout arthritis 3. Transaminitis Patient has elevated liver enzymes which was also present in last admission in 2014. Right upper quadrant ultrasound will be done today to rule out any cholecystitis. Off note patient was on low-carb high-protein diet for past 1 month and lost 40 pounds. 4. Chronic bilateral leg swelling with stasis dermatitis Bilateral pulses felt. His bilateral leg swelling looks like chronic venous stasis. Advised emollient cream. Code-full code Diet-regular diet Plan-up ultrasound right upper quadrant echocardiographic, orthopedic follow-up. We will follow up with uric acid level. Problem List: 1. Hypertension 2. Transaminitis 3. Pulmonary embolus Pain Ratin Pain Location: NONE Pain Goal: Remain pain free Pain Plan: MOTRIN Tomorrow's Labs & Rationales: BEP,CBC Antwan LE,Farida 08/27/17 0263: Attending Review Statement Attending Statement Attending Statement: examined this patient, discuss w/resident/PA/PSYCHIATRIC REGISTERED NURSE, agreed w/resident/PA/PSYCHIATRIC REGISTERED NURSE, reviewed EMR data (avail), discussed with nursing, discussed with case mgmt, amended to note Attending Assessment/Plan: Patient seen adn examined. Resting comfortably. omplains of mild SOB. Denies chest pain or palpitations. Complains of some pain in the right knee. On exam his lunfgs are clear bilaterally. His right knee is ildly swollen with no erythema or tenderness. He has +1 pedal edema bilaterally with chronic venous stasis changes. His fever and leucocytosis may be secondary to his PE. He has no clear evidence of pneumonia on his CT imaging. His knee pain raises and effusion raises concern for an inflammatory/infectious process. His uric acid level is not elevated. Othopedic consult has been placed with Dr Macias for diagnostic joint aspiration. Senthil continue AC with heparin in anticipation of a joint aspiration. He will need age appropriate cancer screening upn discharge. At present other than non- specific diffuse enlarged lymph nodes on imaging, there is no obvious malignant process noted on imaging.
[2017-08-27 07:13] VITALS: BP 144/100
--- NOTE | 2017-08-27 07:56 | PN- Student ---
Subjective Subjective: 62 year old male with a history of HTN, obesity, chronic lower extremity edema with stasis dermatitis, and eczema who was admitted to our service after presenting to the ED secondary to 1 week of progressively worsening SOB on exertion, orthopnea, and cough, productive of green sputum. He admits to flu- like symptoms 1.5 weeks ago, with body aches and chills. These symptoms diminished; however, the aforementioned cough has persisted. Furthermore, he complains of sharp 5/10 knee pain for 3 days after twisting it while working. Overnight, he slept well and denies symptoms of nausea, chest pain/pressure, lightheadedness, or orthopnea. He states that this morning, he had some difficulty ambulating to the restroom 2/2 said knee pain. Currently he is NPO, awaiting U/S abdomen and ECHO, and feels very dehydrated and hungry. Objective Objective: CONSULTS: NONE IMAGING: [08/26/17] Venous Doppler Study: There is no evidence of deep venous thrombosis involving the lower extremities. There is a 7.7 x 2.0 x 2.5 cm right Dao's cyst and there is a 1.5 x 0.8 x 0.8 cm left Dao's cyst. [08/26/17] CTAP: 1. Acute pulmonary embolism heterogeneous segment right lower lobe pulmonary artery. 2. Mosaic perfusion bilateral lungs. Subpleural partially fatty-appearing nodular opacity lingular segment measuring 0.8 cm. Close monitoring with follow-up CT chest in [address] recommended. 3. Enlarged posterior mediastinal right paraesophageal lymph nodes. Limited assessment of the adjacent esophagus. Clinical correlation and if needed endoscopic evaluation may be of value. 4. Enlarged subcarinal lymph node. 5. Punctate nonobstructing right renal calculi. 6. Focal enlargement left adrenal gland measuring 1.6 cm represents an interval change. It can be further assessed with dedicated adrenal CT scan or MRI. 7. Left inguinal hernia containing loop of sigmoid colon. No gross evidence of strangulation. Fat-containing right inguinal hernia. 8. Prominent external iliac and bilateral inguinal lymph nodes may represent reactive change. Clinical correlation and monitoring recommended. [08/26/17] CT Abdomen/Pelvis: 1. Acute pulmonary embolism heterogeneous segment right lower lobe pulmonary artery. 2.. Mosaic perfusion bilateral lungs. Subpleural partially fatty-appearing nodular opacity lingular segment measuring 0.8 cm. Close monitoring with follow-up CT chest in [address] recommended. 3. Enlarged posterior mediastinal right paraesophageal lymph nodes.. Limited assessment of the adjacent esophagus. Clinical correlation and if needed endoscopic evaluation may be of value. 4. Enlarged subcarinal lymph node. 5. Punctate nonobstructing right renal calculi. 6. Focal enlargement left adrenal gland measuring 1.6 cm represents an interval change. It can be further assessed with dedicated adrenal CT scan or MRI. 7. Left inguinal hernia containing loop of sigmoid colon. No gross evidence of strangulation. Fat-containing right inguinal hernia. 8. Prominent external iliac and bilateral inguinal lymph nodes may represent reactive change. Clinical correlation and monitoring recommended. [08/26/17] CXR: Stable enlargement of the cardiac silhouette. Low lung volumes. Prominent hilar markings, question related to low lung volumes. [08/26/17] Knee X-ray: No acute osseous abnormality. Small to moderate suprapatellar joint effusion. Lateral compartment degenerative arthrosis. Dystrophic calcifications within the patellar tendon. PHYSICAL EXAMINATION Vitals: Stable. T 98.7 HR 101, RR 20, BP 144/100, O2 94 2L NC General: AOx3. Obese and appears SOB. He was polite and cooperative during the physical examination. Cardiovascular: Tachycardic, no murmurs, rubs, or gallops appreciated. Pulmonary: Diminished breath sounds over both lung leggett on the right. Dependent crackles noted bilaterally GI: Soft, protuberant, and nontender, negative murphys sign Extremities: Significant bilateral pitting edema and chronic stasis dermatitis, negative homen's sign. MSK: No chest wall tenderness and no pain with deep inspiration Results Results: Laboratory Tests 08/27/17 0415: Sodium Cancelled, Potassium Cancelled, Chloride Cancelled, Carbon Dioxide Cancelled, Anion Gap Cancelled, BUN Cancelled, Creatinine Cancelled, BUN/ Creatinine Ratio Cancelled 08/27/17 0415: Anion Gap 14, Estimated GFR > 60, BUN/Creatinine Ratio 20.0, Troponin I 0.04, CBC w Diff NO MAN DIFF REQ, RBC 4.78, MCV 84.8, MCH 27.0, MCHC 31.9 L, RDW 15.3 H, MPV 7.6, Gran % 75.1, Lymphocytes % 9.8 L, Monocytes % 12.6 H, Eosinophils % 2.1, Basophils % 0.4, Absolute Granulocytes 12.6 H, Absolute Lymphocytes 1.7, Absolute Monocytes 2.1 H, Absolute Eosinophils 0.4, Absolute Basophils 0.1 08/27/17 0215: APTT 27 08/26/17 2218: Troponin I 0.04 08/26/17 1620: Anion Gap 17 H, Estimated GFR > 60, BUN/Creatinine Ratio 21.3, Glucose 120 H, Calcium 9.2, Total Bilirubin 1.8 H, AST 72 H, ALT 132 H, Alkaline Phosphatase 273 H, Troponin I 0.02, Mzh-U-Eqjewmhkywc Pept 1850 H, Total Protein 7.1, Albumin 3.6, Globulin 3.5, Albumin/Globulin Ratio 1.0 L, PT 14.9 H, INR 1.42 H, APTT 31, D-Dimer High Sensitivty 858 H, CBC w Diff MAN DIFF ORDERED, RBC 4.87, MCV 84.8, MCH 27.4, MCHC 32.3 L, RDW 15.3 H, MPV 7.3 L, Gran % 84.3 H, Lymphocytes % 6.7 L, Monocytes % 8.3, Eosinophils % 0.7, Basophils % 0, Absolute Granulocytes 15.1 H, Segmented Neutrophils 81 H, Absolute Lymphocytes 1.2, Lymphocytes 8 L, Monocytes 9, Absolute Monocytes 1.5 H, Eosinophils 1, Absolute Eosinophils 0.1, Basophils 1, Absolute Basophils 0, Platelet Estimate VERIFIED BY SMEAR, Normocytic RBCs VERIFIED, Normochromic RBCs VERIFIED 08/26/17 1550: D-Dimer High Sensitivty Cancelled Microbiology 08/27 55 LOWER RESP: Respiratory Culture - COLB 08/27 55 LOWER RESP: Gram Stain - COLB 08/26 2253 BLOOD: Blood Culture - RECD 08/26 2243 BLOOD: Blood Culture - RECD 08/26 1210 NASOPHARYN: Influenza Virus A & B Rapid Smear - COMP Assessment/Plan Assessment: 62 year old male with a history of HTN, chronic lower extremity edema, and eczema who was admitted to our service after presenting to the ED secondary to 1 week of progressively worsening SOB on exertion, orthopnea, and cough, productive of green sputum. He admits to flu-like symptoms 1.5 weeks ago, with body aches and chills. These symptoms diminished; however, the aforementioned cough has persisted. Furthermore, he complains of sharp 5/10 knee pain for 3 days after twisting it while working. VS on admission: T 99.2 (MAXIMUM TEMPERATURE 101.2), HR 90, RR 22, BP 200/17 ( trended down to 132/88), pulse ox 96% on room air Labs on admission: WBC 18, neutrophils 81, H/H 13.3/41.3, platelet 312, sodium 149, ALT 132, AST 72, alkaline phosphatase 273, proBNP 1850, d-dimer 858 1) RLL PE w/o cor pulmonale Unknown Wells/PERC risk. D-dimer 858. CTPA positive for PE. Etiology currently unknown. Consider bacteremia v malignancy. Negative for influenza. Serial troponins negative, unlikely cardiac etilogy. CT positive for generalized LAD. Plan: Continue to monitor on telemetry. F/u on ECHO. F/u blood culture. Continue IV heparin. F/u on PTT, CBC, BMP. 2) R knee pain-Tendonitis v Septic arthritis v Gout Tendonitis: Patient is obese, with 40lb weight loss over the past month with increasing activity levels. Localized tenderness over the lateral patella, patient able to point to it with one finger. Plan: Rest and ice. PRN pain medication. Consider Ibuprofen over acetaminophen because of transaminitis. Septic arthritis: Generalized LAD on CT, fever of 101.2 Plan: Consider arthrocentesis for color, culture, and crystals. Gout: Anecdotal evidence of episodic first metatarsal joint swelling and pain. Uric acid 6.2. Plan: Repeat uric acid levels in a.m. 3) PNA/URI? Negative rapid influenza test and no evidence of PNA on imaging. Plan: Patient provided Influenza vaccine. Continue to monitor for signs of respiratory decompensation, including increasing O2 requirements or SOB. 4) CARDIOVASCULAR HTN a.m. BP 144/100 (down from 200/117 on admission). ASCVD risk of 15.4% .Considering values are trending down and acceptable BP under new Hypertensive Guidelines is <150/<90, no additional interventions are necessary. Plan: Continue home medications. Lipid Guidelines: Obese, cardiovascular risk factors of HTN and venous stasis. Cholesterol 91, TG 131, LDL 83, HDL 30. No evidence of DM, 10Y ASCVD of 14.6. Age 62y. Plan: Lipid Guidelines suggest starting a moderate to high intensity statin. Consider atorvastatin 10-20mg qd. Lower extremity edema and stasis dermatitis Venous doppler showed no evidence of DVT. Plan: Continue to monitor for worsening edema. Consider compression stalkings. Consider moisterizer BID. 5) Fever-PE v septic arthritis v hepatitis v sepsis Currently 98.7, peaked to 101.2 yesterday. Hepatitis panel nonreactive. Plan: Continue to monitor vitals and I/Os. F/u on blood cultures. Consider ordering arthrocentesis of R knee as stated in (2). 6) Hypernatremia 149, 146, 148. Patient currently NPO and has not had any fluids since yesterday afternoon. Plan: Encourage PO hydration. 8) Glucose 120 Value taken on admission. No hx of diabetes; however, significant risk factors. HbA1c 5.7. Plan: Patient on heart healthy diet. No further intervention necessary. Miscellaneous imaging findings 9) Transaminitis Negative murphys sign. No jaundice. AST 72, ALT 132 ALP 273, total Bilirubin 1.8. Hepatitis panel nonreactive. R/o cholestasis. Plan: Order RUQ U/S. 10) Elevated BNP Hx of SOB on exertion and orthopnea with a chronic cough. Pro-BNP 1850, dependent crackles on physical examination, serial troponins negative Plan: Patient scheduled for an ECHO today. F/u on results. 11) Enlarged right adrenal gland, lymphadenopathy, and nonobstructing right renal calculus Plan: Consider further imaging to work up adrenal hyperplasia. F/u on blood cultures for generalized LAD, r/o sepsis as cause of fever and PE. Consider Heme /Onc consult if cultures are negative. No further workup needed for nonobstructing kidney stone. -Diet: Heart healthy -DVT prophylaxis: IV heparin, ALPS -CODE STATUS: Full code
--- NOTE | 2017-08-27 09:51 | Patient Discharge Instructions ---
Discharge Instructions General Discharge Information You were seen/treated for: Pulmonary embolism Watch for these problems: In case of chest pain, chest pressure, nausea, vomiting, abdominal pain, palpitation please go to the nearest ER Special Instructions: Please follow up with Dr Mai for out patient PET scan/biopsy Please follow-up with the primary care physician within 1-2 weeks of discharge. Diet Continue normal diet: No Recommended Diet: Regular Activity Full Activity/No Limits: No Activity Self Limited: Yes Acute Coronary Syndrome Inclusion Criteria At DC or during hospital stay patient has or had the following: ACS DIAGNOSIS No Discharge Core Measures Meds if any: Prescribed or Continued at Discharge Meds if any: NOT Prescribed or Continued at Discharge Congestive Heart Failure Inclusion Criteria At DC or during hospital stay patient has or had the following: CHF DIAGNOSIS No Discharge Core Measures Meds if any: Prescribed or Continued at Discharge DARYL/ARB for EF <40% No Meds if any: NOT Prescribed or Continued at Discharge Cerebrovascular accident Inclusion Criteria At DC or during hospital stay patient has or had the following: CVA/TIA Diagnosis No Discharge Core Measures Meds if any: Prescribed or Continued at Discharge Meds if any: NOT Prescribed or Continued at Discharge Venous thromboembolism Inclusion Criteria VTE Diagnosis Yes VTE Type Pulmonary Embolism VTE Confirmed by (Test) CT CHEST ANGIOGRAM Discharge Core Measures - Per Current guidelines, there needs to be overlap - treatment for the first 5 days of Warfarin therapy. - If discharged on Warfarin prior to 5 days of - overlap therapy, the patient will need to be - assessed for post discharge needs including - *Post discharge parental anticoagulation - *Warfarin and/or parental anticoagulation education - *Follow up date to check INR post discharge At least 5 days overlap therapy as Inpatient Yes Meds if any: Prescribed or Continued at Discharge Note: Overlap Therapy is Warfarin and Anticoagulant Meds if any: NOT Prescribed or Continued at Discharge
--- NOTE | 2017-08-27 09:59 | Admission Certification ---
Admission Certification Certification Statement - As attending physician, I certify that at the time of - admission, based on clinical presentation, severity of - symptoms, need for further diagnostic testing and - therapeutic interventions, and risk of adverse outcomes - without in-hospital treatment, in my clinical assessment, - this patient requires an acute hospital stay for a minimum - of two nights or longer. I have also considered psychsocial - factors such as support system, advanced age, financial - issues, cognitive issues, and failed out-patient treatments, - past re-admission history, safety of patient, and lack of - compliance as applicable. Specific rationale supporting this admission is: Pulmonary embolism
[2017-08-27 11:42] LABS: PTT 41 SEC (25-37)
--- NOTE | 2017-08-27 14:20 | ULTRASOUND REPORT ---
EXAMINATION: US ABDOMEN COMPLETE CLINICAL INFORMATION: Transaminitis. Assess for intra-abdominal pathology. COMPARISON: Ultrasound of the right upper quadrant dated 06/01/2015. CT scan of the chest, abdomen and pelvis dated 08/26/2017. TECHNIQUE: Real-time imaging of the abdominal viscera. FINDINGS: Evaluation is limited due to patient's body habitus and respiratory status. PANCREAS: Essentially completely obscured by overlying bowel gas. ABDOMINAL AORTA: The proximal segment is normal in caliber. Remainder of the aorta are not seen. INFERIOR VENA CAVA: Visualized portions are normal. LIVER: Normal. The liver demonstrates normal size, contour and echogenicity. No focal lesion or intrahepatic biliary duct dilatation. GALLBLADDER: There is a 0.5 cm echogenic nonshadowing focus seen adherent to the nondependent wall of the gallbladder, possibly a small gallbladder wall polyp versus a adherent noncalcified stone. The gallbladder is physiologically distended and otherwise unremarkable without sludge, wall thickening or pericholecystic fluid seen. COMMON BILE DUCT: Normal in caliber measuring 0.3 cm in diameter. RIGHT KIDNEY: Normal. No hydronephrosis. No renal calculi or focal parenchymal lesions. The kidney measures 12.7 cm in maximum dimension. LEFT KIDNEY: Normal. No hydronephrosis. No renal calculi or focal parenchymal lesions. The kidney measures 12.5 cm in maximum dimension. SPLEEN: Normal. The spleen measures 11.8 cm in maximum dimension. FREE FLUID: None. IMPRESSION: 1. Pancreas obscured by overlying bowel gas. 2. A 0.5 cm gallbladder wall polyp versus tiny adherent noncalcified gallstone is seen in the gallbladder. Gallbladder otherwise unremarkable. No biliary dilatation. 3. Otherwise unremarkable exam.
[2017-08-27 14:35] VITALS: BP 140/94
--- NOTE | 2017-08-27 16:06 | Event Note ---
Event Note Event Note: I spoke to Dr. Macias over phone regarding tapping his right knee to rule out any septic arthritis. given the patient history of gout in the past, he recommends to continue treatment for gout and if he further spikes fever or if his right knee is swollen he said he will consider arthrocentesis of his right knee.
[2017-08-27 21:24] LABS: PTT 66 SEC (25-37)
[2017-08-27 21:57] VITALS: BP 146/88
[2017-08-28 06:39] VITALS: BP 144/92
--- NOTE | 2017-08-28 06:52 | PN- Housestaff ---
Anil LE,Alesha 08/28/17 0652: Subjective Follow-up For: Pulmonary embolism Complaints: no complaints Tele-Events Since Last Visit: Sinus rhythm heart rate 88 Subjective: Patient was seen and examined at bedside. No overnight events. No complaints. He denies chest pain, chest pressure, cough, shortness of breath, palpitation,. He says that his right knee pain is better today. Review of Systems Constitutional: Reports: no symptoms. Cardiovascular: Reports: no symptoms. Respiratory: Reports: no symptoms. Gastrointestinal: Reports: no symptoms. Genitourinary: Reports: no symptoms. Musculoskeletal: Reports: no symptoms. Skin: Reports: no symptoms. Objective Last 24 Hrs of Vital Signs/I&O Vital Signs Date Time Temp Pulse Resp B/P B/P Pulse O2 O2 Flow FiO2 Mean Ox Delivery Rate 08/28 1426 99.4 102 22 130/82 92 Room Air 08/28 1142 93 Room Air Room Air 08/28 0941 99 144/92 08/28 0800 94 Nasal 1.0L Cannula 08/28 0639 99.5 99 18 144/92 91 Room Air 08/28 0000 95 Nasal 1.0L Cannula 08/27 2157 146/88 08/27 2157 98.3 92 20 93 Nasal Cannula 08/27 2050 89 Room Air 08/27 1806 99.1 Intake & Output 08/28 1600 08/28 0800 08/28 0000 Intake Total 360 517.2 191.8 Output Total 300 550 Balance 360 217.2 -358.2 Intake, IV 367.2 91.8 Intake, Oral 360 150 100 Output, Urine 300 550 Physical Exam General Appearance: Alert, Oriented X3, Cooperative, No Acute Distress Skin: No Breakdown HEENT: PERRLA, EOMI Cardiovascular: Regular Rate, Normal S1, Normal S2, No Murmurs Lungs: Clear to Auscultation, Normal Air Movement Abdomen: Soft, No Tenderness, No Hepatospenomegaly Neurological: Normal Speech, Strength at 5/5 X4 Ext, Normal Tone, Sensation Intact Extremities: No Cyanosis, Normal Pulses, bilateral leg swelling with chronic venous stasis. Vascular: Pulses Symmetrical Current Medications: Current Medications Sig/Laya Start time Last Medication Dose Route Stop Time Status Admin Acetaminophen 650 MG .STK-MED ONE 08/28 0555 DC PO 08/28 05 Acetaminophen 650 MG Q4P PRN 08/27 1615 AC 08/28 PO 0555 Acetaminophen 1,000 MG Q6H PRN 08/27 1615 AC N/A 1 UNIT IV Albuterol Sulfate 3 ML Q4P PRN 08/27 0900 AC 08/28 INH 1137 Apixaban 5 MG 0600,1800 08/28 1800 AC PO Azithromycin 500 MG DAILY 08/26 2359 DC 08/27 Dextrose/Water 250 ML IV 0828 Ceftriaxone Sodium 1,000 MG DAILY 08/26 2359 DC 08/27 IV 0829 Heparin Sodium 4,980 UNIT ONCE ONE 08/28 1210 DC (Porcine) IV 08/28 1211 Heparin Sodium 25,000 UNIT Q24H 08/26 1915 AC 08/28 (Porcine) IV 08/28 190 0247 Sodium Chloride 500 ML Ibuprofen 800 MG 4 TIMES/DAY PRN 08/27 0715 DC 08/27 PO 1357 Lisinopril 10 MG DAILY 08/27 1141 AC 08/28 PO 0941 Last 24 Hrs of Lab/Tony Results Last 24 Hrs of Labs/Mics: Laboratory Tests 08/28/17 1015: Anion Gap 10, Estimated GFR > 60, BUN/Creatinine Ratio 23.3, APTT 54 H, CBC w Diff NO MAN DIFF REQ, RBC 4.37 L, MCV 85.5, MCH 27.5, MCHC 32.1 L, RDW 15.6 H , MPV 8.0, Gran % 77.2 H, Lymphocytes % 9.1 L, Monocytes % 11.3 H, Eosinophils % 2.0, Basophils % 0.4, Absolute Granulocytes 13.0 H, Absolute Lymphocytes 1.5, Absolute Monocytes 1.9 H, Absolute Eosinophils 0.3, Absolute Basophils 0.1 08/27/17 2100: APTT 66 H Assessment/Plan Assessment: This is a 62-year-old gentleman with past medical history of chronic bilateral leg swelling, hypertension on lisinopril and furosemide came to [facility] with complaints of cough and shortness of breath for past 1 week. He was found to have right lower lobe pulmonary embolism and was admitted to telemetry for monitoring and further evaluation. History-patient had a 40 pound weight loss in the past 1 month. Patient claims his weight loss related to low-carb high-protein diet which included a lot of protein shake. No weight loss supplements taken. Patient was admitted in 2014 for cellulitis at [facility]. During the admission patient had transaminitis CTA 1. Acute pulmonary embolism heterogeneous segment right lower lobe pulmonary artery 1. Pulmonary embolism on IV heparin Patient had a CTA on admission which shows right lower lobe pulmonary embolism. Ultrasound Doppler of lower legs was negative. Patient was started on IV heparin. We will start him on oral anticoagulant Eliquis 5 mg twice a day and stop heparin. Echocardiogram to rule out any strain. On CT abdomen and pelvis patient has multiple lymph node enlargement and small pulmonary nodule. Patient had persistent leukocytosis and transaminitis even in his last admission in 2014. Given this CAT scan of the abdomen and pelvis showing multiple lymph node enlargement we will get a hematology consult to help with further management. 2. Right knee pain Patient has right knee pain.pt also gives history of gout in his right greater toe. [never been diagnosed] his uric acid level is 6.5. Cachorro Macias MD was contacted over phone who suggested to treat him for gout and if he spikes fever or his right knee swelling is increased he said that he will do an arthrocentesis. X-ray right knee shows suprapatellar effusion. 3. Transaminitis Patient has elevated liver enzymes which was also present in last admission in 2014. Right upper quadrant ultrasound will be done today to rule out any cholecystitis. Off note patient was on low-carb high-protein diet for past 1 month and lost 40 pounds. 4. Chronic bilateral leg swelling with stasis dermatitis Bilateral pulses felt. His bilateral leg swelling looks like chronic venous stasis. Advised emollient cream. Code-full code Diet-regular diet Patient is encouraged to ambulate. At home he doesn't use cane or walker. If the patient is able to ambulate well without support will send him home tomorrow. If not will get a physical therapy on board. Problem List: 1. Pulmonary embolus Pain Ratin Pain Location: none Pain Goal: Remain pain free Pain Plan: tylenol Tomorrow's Labs & Rationales: cbc,bep Antwan LE,Farida 08/28/17 1522: Attending Review Statement Attending Statement Attending Statement: examined this patient, discuss w/resident/PA/[employer], agreed w/resident/PA/[employer], reviewed EMR data (avail), discussed with nursing, discussed with case mgmt, amended to note Attending Assessment/Plan: Patient seen and examined. Resting comfortably not in acute distress. No new issues overnight. Denies shortness of breath at rest. Denies cough. Reports that he is right knee pain has improved and is able to ambulate. On examination lungs are clear to auscultation bilaterally. He has chronic pedal edema bilaterally. Labs show persistent leukocytosis today. However leukocytosis is chronic dating back to 2014. At that time he had recommendations to follow-up with the hematology service. We will transition patient to [facility]. Recommend evaluation by the hematology service for his unprovoked pulmonary embolism, chronic leukocytosis as well as nonspecific lymphadenopathy.
--- NOTE | 2017-08-28 07:23 | PN- Student ---
Subjective Subjective: 62 year old male with a history of HTN, obesity, chronic lower extremity edema with stasis dermatitis, and eczema who was admitted to our service after presenting to the ED secondary to 1 week of progressively worsening SOB on exertion, orthopnea, and cough, productive of green sputum. He admits to flu- like symptoms 1.5 weeks ago, with body aches and chills. These symptoms diminished; however, the aforementioned cough has persisted. Furthermore, he complains of sharp 5/10 knee pain for 3 days after twisting it while working. Overnight, he slept restlessly and this morning he is slightly anxious to leave, stating he is fatigued from all the doctors and tests and requesting the remaining tests be done outpatient. He denied any new symptoms, such as nausea, chest pain/pressure, lightheadedness, or orthopnea and worsening of old symptoms. He states that this morning, he his knee is better and he is able to adjust his chair without help. Furthermore, he is unable to point to a specific foci of pain. He is taking PO fluids and feels well hydrated compared to yesterday. Objective Objective: CONSULTS: NONE IMAGING: [08/27/17] Abdominal U/S: 1. Pancreas obscured by overlying bowel gas. 2. A 0.5 cm gallbladder wall polyp versus tiny adherent noncalcified gallstone is seen in the gallbladder. Gallbladder otherwise unremarkable. No biliary dilatation. 3. Otherwise unremarkable exam. [08/26/17] Venous Doppler Study: There is no evidence of deep venous thrombosis involving the lower extremities. There is a 7.7 x 2.0 x 2.5 cm right Dao's cyst and there is a 1.5 x 0.8 x 0.8 cm left Dao's cyst. [08/26/17] CTAP: 1. Acute pulmonary embolism heterogeneous segment right lower lobe pulmonary artery. 2. Mosaic perfusion bilateral lungs. Subpleural partially fatty-appearing nodular opacity lingular segment measuring 0.8 cm. Close monitoring with follow-up CT chest in [address] recommended. 3. Enlarged posterior mediastinal right paraesophageal lymph nodes. Limited assessment of the adjacent esophagus. Clinical correlation and if needed endoscopic evaluation may be of value. 4. Enlarged subcarinal lymph node. 5. Punctate nonobstructing right renal calculi. 6. Focal enlargement left adrenal gland measuring 1.6 cm represents an interval change. It can be further assessed with dedicated adrenal CT scan or MRI. 7. Left inguinal hernia containing loop of sigmoid colon. No gross evidence of strangulation. Fat-containing right inguinal hernia. 8. Prominent external iliac and bilateral inguinal lymph nodes may represent reactive change. Clinical correlation and monitoring recommended. [08/26/17] CT Abdomen/Pelvis: 1. Acute pulmonary embolism heterogeneous segment right lower lobe pulmonary artery. 2.. Mosaic perfusion bilateral lungs. Subpleural partially fatty-appearing nodular opacity lingular segment measuring 0.8 cm. Close monitoring with follow-up CT chest in [address] recommended. 3. Enlarged posterior mediastinal right paraesophageal lymph nodes.. Limited assessment of the adjacent esophagus. Clinical correlation and if needed endoscopic evaluation may be of value. 4. Enlarged subcarinal lymph node. 5. Punctate nonobstructing right renal calculi. 6. Focal enlargement left adrenal gland measuring 1.6 cm represents an interval change. It can be further assessed with dedicated adrenal CT scan or MRI. 7. Left inguinal hernia containing loop of sigmoid colon. No gross evidence of strangulation. Fat-containing right inguinal hernia. 8. Prominent external iliac and bilateral inguinal lymph nodes may represent reactive change. Clinical correlation and monitoring recommended. [08/26/17] CXR: Stable enlargement of the cardiac silhouette. Low lung volumes. Prominent hilar markings, question related to low lung volumes. [08/26/17] Knee X-ray: No acute osseous abnormality. Small to moderate suprapatellar joint effusion. Lateral compartment degenerative arthrosis. Dystrophic calcifications within the patellar tendon. PHYSICAL EXAMINATION Vitals: Stable. T 99.5 HR 99, RR 18, BP 144/92, O2 91 RA General: AOx3. Obese and appears SOB. He was polite and cooperative during the physical examination. Cardiovascular: Tachycardic, no murmurs, rubs, or gallops appreciated. Pulmonary: Diminished breath sounds over both lung leggett on the right. Dependent crackles noted bilaterally GI: Soft, protuberant, and nontender, negative murphys sign Extremities: Significant bilateral edema and chronic stasis dermatitis, negative homen's sign. MSK: No chest wall tenderness and no pain with deep inspiration Results Results: Laboratory Tests 08/27/17 2100: APTT 66 H 08/27/17 1110: APTT 41 H 08/27/17 1105: Urine Color YEL, Urine Clarity CLEAR, Urine pH 6.0, Ur Specific [place] 1.025, Urine Protein 30 H, Urine Ketones NEG, Urine Nitrite NEG, Urine Bilirubin NEG, Urine Urobilinogen 1.0, Ur Leukocyte Esterase NEG, Ur Microscopic SEDIMENT EXAMINED, Urine RBC RARE, Urine WBC RARE, Ur Epithelial Cells FEW, Urine Bacteria FEW H, Urine Mucus FEW, Urine Hemoglobin TRACE-INTACT H, Urine Glucose NEG 08/27/17 0600: Hemoglobin A1c 5.7 08/27/17 0415: Sodium Cancelled, Potassium Cancelled, Chloride Cancelled, Carbon Dioxide Cancelled, Anion Gap Cancelled, BUN Cancelled, Creatinine Cancelled, BUN/ Creatinine Ratio Cancelled 08/27/17 0415: Anion Gap 14, Estimated GFR > 60, BUN/Creatinine Ratio 20.0, Uric Acid 6.5, Troponin I 0.04, Triglycerides 91, Cholesterol 131, LDL Cholesterol, Calc 83, HDL Cholesterol 30 L, Cholesterol/HDL Ratio 4, CBC w Diff MAN DIFF ORDERED, RBC 4.78, MCV 84.8, MCH 27.0, MCHC 31.9 L, RDW 15.3 H, MPV 7.6, Gran % 75.1, Lymphocytes % 9.8 L, Monocytes % 12.6 H, Eosinophils % 2.1, Basophils % 0.4, Absolute Granulocytes 12.6 H, Absolute Lymphocytes 1.7, Absolute Monocytes 2.1 H, Absolute Eosinophils 0.4, Absolute Basophils 0.1, Platelet Estimate ADEQUATE, Normocytic RBCs VERIFIED, Normochromic RBCs VERIFIED, Hepatitis A IgM Ab NONREACTIVE, Hep Bs Antigen NONREACTIVE, Hep B Core IgM Ab Conf NONREACTIVE, Hepatitis C Antibody NONREACTIVE 08/27/17 0400: Haptoglobin Pending 08/27/17 0215: APTT 27 08/26/17 2218: Troponin I 0.04 08/26/17 1620: Anion Gap 17 H, Estimated GFR > 60, BUN/Creatinine Ratio 21.3, Glucose 120 H, Calcium 9.2, Total Bilirubin 1.8 H, AST 72 H, ALT 132 H, Alkaline Phosphatase 273 H, Troponin I 0.02, Gkr-V-Ytthelzynii Pept 1850 H, Total Protein 7.1, Albumin 3.6, Globulin 3.5, Albumin/Globulin Ratio 1.0 L, PT 14.9 H, INR 1.42 H, APTT 31, D-Dimer High Sensitivty 858 H, CBC w Diff MAN DIFF ORDERED, RBC 4.87, MCV 84.8, MCH 27.4, MCHC 32.3 L, RDW 15.3 H, MPV 7.3 L, Gran % 84.3 H, Lymphocytes % 6.7 L, Monocytes % 8.3, Eosinophils % 0.7, Basophils % 0, Absolute Granulocytes 15.1 H, Segmented Neutrophils 81 H, Absolute Lymphocytes 1.2, Lymphocytes 8 L, Monocytes 9, Absolute Monocytes 1.5 H, Eosinophils 1, Absolute Eosinophils 0.1, Basophils 1, Absolute Basophils 0, Platelet Estimate VERIFIED BY SMEAR, Normocytic RBCs VERIFIED, Normochromic RBCs VERIFIED 08/26/17 1550: D-Dimer High Sensitivty Cancelled Microbiology 08/27 1105 URINE ROUT: Urine Culture - RECD 08/27 55 LOWER RESP: Respiratory Culture - COLB 08/27 55 LOWER RESP: Gram Stain - COLB 08/26 2254 BLOOD: Blood Culture - RES 08/26 224 BLOOD: Blood Culture - RES 08/26 1210 NASOPHARYN: Influenza Virus A & B Rapid Smear - COMP Assessment/Plan Assessment: 62 year old male with a history of HTN, obesity, chronic lower extremity edema with stasis dermatitis, and eczema who was admitted to our service after presenting to the ED secondary to 1 week of progressively worsening SOB on exertion, orthopnea, and cough, productive of green sputum. He admits to flu- like symptoms 1.5 weeks ago, with body aches and chills. These symptoms diminished; however, the aforementioned cough has persisted. Furthermore, he complains of sharp 5/10 knee pain for 3 days after twisting it while working. VS on admission: T 99.2 (MAXIMUM TEMPERATURE 101.2), HR 90, RR 22, BP 200/17 ( trended down to 132/88), pulse ox 96% on room air Labs on admission: WBC 18, neutrophils 81, H/H 13.3/41.3, platelet 312, sodium 149, ALT 132, AST 72, alkaline phosphatase 273, proBNP 1850, d-dimer 858 Physical examination is remarkable for point tenderness over the ventral-lateral patellar/LCL region, 2+ edema to the knees bilaterally with associated venous stasis and negative Homen's sign. Furthermore, breath sounds are diminished bilaterally and dependent crackles were noted bilaterally. Labs are significant for WBC 16.8 from 18, H/H 12.9/40.5 from 13.3/41.3 and sodium 148 from 149. Venous doppler, CTPA, RUQ U/S, CXR, and knee Xray all revealed noncontributory findings. CT abdomen/pelvis revealed general LAD and a 1.6mm nodule on the right adrenal gland. 1) RLL PE w/o cor pulmonale Unknown Wells/PERC risk. D-dimer 858. CTPA positive for PE. Etiology currently unknown. Consider bacteremia v malignancy. Negative for influenza. Serial troponins negative, unlikely cardiac etilogy. CT positive for generalized LAD. Blood culture shows no growth after 1 day. PTT 66 from 41. H/H 12.9/40.5 from 13.3/41.3. Rapid weightloss, calorie restriction, and increased activity could potentially lead to mobilization of a peripheral clot; however, venous duplex was negative for signs of DVT. Plan: Continue to monitor on telemetry. F/u on ECHO. Continue to f/u blood culture. Continue IV heparin. F/u on PTT, CBC, BMP. 2) R knee pain-Tendonitis v Septic arthritis v Gout Tendonitis: Patient is obese, with 40lb weight loss over the past month with increasing activity levels. Localized tenderness over the lateral patella, patient able to localize the pain with one finger. Plan: Rest and ice. PRN pain medication. Consider Ibuprofen over acetaminophen because of transaminitis. Septic arthritis: Generalized LAD on CT, fever of 101.2 Plan: Consider arthrocentesis for color, culture, and crystals. Gout: Anecdotal evidence of episodic right first metatarsal joint swelling and pain. Uric acid 6.2. Plan: No further evaluation required. 3) PNA/URI? Negative rapid influenza test and no evidence of PNA on imaging. Plan: Patient provided Influenza vaccine. Continue to monitor for signs of respiratory decompensation, including increasing O2 requirements or SOB. 4) CARDIOVASCULAR HTN a.m. BP 144/92 (down from 200/117 on admission). ASCVD risk of 15.4% .Considering values are trending down and acceptable BP under new Hypertensive Guidelines is <150/<90, no additional interventions are necessary. Plan: Continue home medications. Lipid Guidelines: Obese, cardiovascular risk factors of HTN and venous stasis. Cholesterol 91, TG 131, LDL 83, HDL 30. No evidence of DM, 10Y ASCVD of 14.6%. Age 62y. Plan: Lipid Guidelines suggest starting a moderate to high intensity statin. Consider atorvastatin 10-20mg qd. Lower extremity edema and stasis dermatitis Venous doppler showed no evidence of DVT. Plan: Continue to monitor for worsening edema. Consider compression stalkings. Consider moisterizer BID. 5) Fever-PE v septic arthritis v hepatitis v sepsis Currently 98.7, peaked to 101.2 yesterday. Hepatitis panel nonreactive. Blood cultures with no growth after 1 day. Plan: Continue to monitor vitals and I/Os. Continue to f/u on blood cultures. Consider ordering arthrocentesis of R knee as stated in (2). 6) Hypernatremia 149, 146, 148. Patient currently NPO and has not had any fluids since yesterday afternoon. Plan: Encourage PO hydration. 8) Glucose 120 Value taken on admission. No hx of diabetes; however, significant risk factors. HbA1c 5.7. Plan: Patient on heart healthy diet. No further intervention necessary. 9) Transaminitis Negative murphys sign. No jaundice. AST 72, ALT 132 ALP 273, total Bilirubin 1.8. Hepatitis panel nonreactive. Cholestatic pattern. RUQ Abdominal U/S negative for obstructing stone or acute inflammatory process. Consider hemolysis , intra- or extravascular. Calorie deficit and rapid weight loss can lead to a catabolic state, causing elevated liver chemistry. Plan: Repeat CMP, order peripheral smear and continue to monitor for symptoms/ signs of worsening hepatic function, including jaundice, pruritis, fatigue, pericarditis, etc. 10) Elevated BNP Hx of SOB on exertion and orthopnea with a chronic cough. Pro-BNP 1850, dependent crackles on physical examination, serial troponins negative Plan: Patient scheduled for an ECHO today. F/u on results. 11) Enlarged right adrenal gland, lymphadenopathy, and nonobstructing right renal calculus Blood cultures with no growth after 1 day. Plan: Consider further imaging to work up adrenal hyperplasia. Continue to f/u on blood cultures for generalized LAD, r/o sepsis as cause of fever and PE. Consider Heme/Onc consult if cultures are negative. No further workup needed for nonobstructing kidney stone. -Diet: Heart healthy -DVT prophylaxis: IV heparin, ALPS -CODE STATUS: Full code Plan: Acetaminophen is generally well tolerated in patients with CLD or cirrhosis who do not consume alcohol, provided the total daily dose is limited to no more than 2 g/day.
[2017-08-28 10:57] LABS: PTT 54 SEC (25-37)
[2017-08-28 11:08] LABS: ABSOLUTE BASOPHIL COUNT 0.1 /CUMM (0.0-0.2); ABSOLUTE EOSINOPHIL COUNT 0.3 /CUMM (0.0-0.7); ABSOLUTE LYMPH COUNT 1.5 /CUMM (1.2-3.4); ABSOLUTE MONOCYTE COUNT 1.9 /CUMM (0.10-0.60); BASOPHIL % 0.4 % (0.0-2.0); GRANULOCYTE % 77.2 % (42.2-75.2); HEMATOCRIT 37.3 % (42-52); MEAN CORPUSCULAR HGB 27.5 PG (27.0-31.0); MEAN CORPUSCULAR HGB CONC 32.1 G/DL (33.0-37.0); MEAN CORPUSCULAR VOLUME 85.5 FL (80.0-94.0); PLATELET COUNT 340 /CUMM (130-400); RBC DISTRIBUTION WIDTH 15.6 % (11.5-14.5); RED BLOOD CELL CT 4.37 /CUMM (4.70-6.10)
[2017-08-28 11:13] LABS: WHITE BLOOD CELL COUNT 16.9 /CUMM (4.8-10.8)
[2017-08-28 14:26] VITALS: BP 130/82
[2017-08-28 19:41] LABS: PTT 55 SEC (25-37)
[2017-08-28 22:01] VITALS: BP 136/78
[2017-08-29 06:09] VITALS: BP 140/88
--- NOTE | 2017-08-29 06:56 | PN- Housestaff ---
Anil LE,Alesha 08/29/17 0656: Subjective Follow-up For: pul embolism Complaints: no complaints Tele-Events Since Last Visit: NSR HR 88 Subjective: Patient was seen and examined at bedside. He is sitting comfortably in his recliner. Saturating 98 in room air. No overnight events. No complains. Patient denies chest pain, chest pressure, nausea, vomiting, shortness of breath , palpitation, right knee pain. Review of Systems Constitutional: Reports: no symptoms. Cardiovascular: Reports: no symptoms. Respiratory: Reports: no symptoms. Gastrointestinal: Reports: no symptoms. Genitourinary: Reports: no symptoms. Musculoskeletal: Reports: no symptoms. Objective Last 24 Hrs of Vital Signs/I&O Vital Signs Date Time Temp Pulse Resp B/P B/P Pulse O2 O2 Flow FiO2 Mean Ox Delivery Rate 08/29 830 96 140/88 08/29 0509 98.7 96 20 140/88 96 08/29 0000 94 Nasal 1.0L Cannula 08/28 2200 98.1 97 28 136/78 92 08/28 1927 Room Air Intake & Output 08/29 1600 08/29 0800 08/29 0000 Intake Total 200 200 Output Total 125 Balance 200 75 Intake, Oral 200 200 Output, Urine 125 Physical Exam General Appearance: Alert, Oriented X3, Cooperative, No Acute Distress Skin: No Rashes, No Breakdown HEENT: PERRLA, EOMI Cardiovascular: Regular Rate, Normal S1, Normal S2, No Murmurs Lungs: Normal Air Movement Abdomen: Soft, No Tenderness, No Hepatospenomegaly Neurological: Normal Speech, Strength at 5/5 X4 Ext, Normal Tone, Sensation Intact Extremities: No Cyanosis, No Edema, Normal Pulses Vascular: Normal Pulses Current Medications: Current Medications Sig/Laya Start time Last Medication Dose Route Stop Time Status Admin Acetaminophen 650 MG .STK-MED ONE 08/28 2159 DC PO 08/28 2200 Acetaminophen 650 MG .STK-MED ONE 08/28 1758 DC PO 08/28 1759 Acetaminophen 650 MG Q4P PRN 08/27 1615 DCD 08/28 PO 2208 Acetaminophen 1,000 MG Q6H PRN 08/27 1615 DCD N/A 1 UNIT IV Albuterol Sulfate 3 ML Q4P PRN 08/27 0900 DCD 08/28 INH 1137 Apixaban 5 MG 0600,1800 08/28 1800 DCD 08/29 PO 0509 Furosemide 20 MG DAILY 08/29 1000 DCD 08/29 PO 1045 Heparin Sodium 25,000 UNIT Q24H 08/26 1915 DC 08/28 (Porcine) IV 08/28 1900 1530 Sodium Chloride 500 ML Lisinopril 10 MG DAILY 08/27 1141 DCD 08/29 PO 0831 Last 24 Hrs of Lab/Tony Results Last 24 Hrs of Labs/Mics: Laboratory Tests 08/29/17 0642: Anion Gap 11, Estimated GFR > 60, BUN/Creatinine Ratio 25.0, CBC w Diff NO MAN DIFF REQ, RBC 4.26 L, MCV 85.1, MCH 27.4, MCHC 32.3 L, RDW 15.3 H, MPV 7.6, Gran % 79.9 H, Lymphocytes % 7.6 L, Monocytes % 9.8 H, Eosinophils % 2.7, Basophils % 0, Absolute Granulocytes 14.0 H, Absolute Lymphocytes 1.3, Absolute Monocytes 1.7 H, Absolute Eosinophils 0.5, Absolute Basophils 0 08/28/171814: APTT 55 H Assessment/Plan Assessment: This is a 62-year-old gentleman with past medical history of chronic bilateral leg swelling, hypertension on lisinopril and furosemide came to [facility] with complaints of cough and shortness of breath for past 1 week. He was found to have right lower lobe pulmonary embolism and was admitted to telemetry for monitoring and further evaluation. History-patient had a 41 pound weight loss in the past 1 month. Patient claims his weight loss related to low-carb high-protein diet which included a lot of protein shake. No weight loss supplements taken. Patient was admitted in 2014 for cellulitis at [facility]. During that admission patient had transaminitis. CTA 1. Acute pulmonary embolism heterogeneous segment right lower lobe pulmonary artery 1. Pulmonary embolism Patient had a CTA on admission which shows right lower lobe pulmonary embolism. Ultrasound Doppler of lower legs was negative. Patient was started on IV heparin. Heparin was discontinued and started him on Eliquis 5 mg twice a day. Patient declined echocardiogram. On CT abdomen and pelvis patient has multiple lymph node enlargement and small pulmonary nodule. Patient was seen by Dr. tilley who suggested outpatient PET scan and possible biopsy to rule out any malignancy. 2. Right knee pain Patient had right knee pain upon admission. Patient also gives history of gout in his right greater toe. [never been diagnosed] we will send a uric acid level. X-ray right knee shows suprapatellar effusion. Spoke to Cachorro Macias MD over phone who will suggested to treat him with NSAID/colchicine for his right knee pain. 3. Transaminitis Patient has elevated liver enzymes which was also present in last admission in 2014. Right upper quadrant ultrasound was negative. He will be followed by Dr. Painting as outpatient. 4. Chronic bilateral leg swelling with stasis dermatitis Bilateral pulses felt. His bilateral leg swelling looks like chronic venous stasis. Advised emollient cream. Code-full code Diet-regular diet Plan-for discharge to home. Problem List: 1. Pulmonary embolus Pain Ratin Pain Location: none Pain Goal: Remain pain free Pain Plan: tylenol Tomorrow's Labs & Rationales: none Antwan LE,Farida 08/29/17 0946: Attending MD Review Statement Attending Statement Attending MD Statement: examined this patient, discuss w/resident/PA/MASTER ELECTRICIAN, agreed w/resident/PA/MASTER ELECTRICIAN, reviewed EMR data (avail), discussed with nursing, discussed with case mgmt, amended to note Attending Assessment/Plan: Patient seen and examined. Resting comfortably not in any distress. No issues overnight. Denies chest pain or shortness of breath. Denies palpitations. Reports feeling better. Ambulating with no complaints of pain in the knee. On examination lungs are clear bilaterally. Right knee shows no swelling or tenderness. Consultation by the hematology service appreciated. Patient will follow-up for further workup as an outpatient. This has been explained to the patient and he verbalized understanding. He is medically stable to be discharged home today.
--- NOTE | 2017-08-29 07:07 | Cons- Hematology ---
General Information and HPI Consulting Request Date of Consult: 08/29/17 Requested By: Farida Moncada MD History of Present Illness: 62-year-old gentleman admitted to the hospital for shortness of breath and cough. Patient denied fever chills or hemoptysis. Patient with chronic leg edema for years uncertain etiology. Workup thus far has documented pulmonary emboli. Patient has had a 40 pound weight loss tells me this is been deliberate. Family is unremarkable for thrombophilia. Patient is suffered no recent trauma or prolonged immobilization. Allergies/Medications Allergies: Coded Allergies: NO KNOWN ALLERGIES (06/01/15) Home Med List: Ibuprofen 200 MG TAB 2 TAB PO PRN PAIN (Reported) Lisinopril 10 MG TAB 1 TAB PO DAILY High blood pressure Current Medications: Current Medications Sig/Laya Start time Last Medication Dose Route Stop Time Status Admin Acetaminophen 650 MG .STK-MED ONE 08/28 2159 DC PO 08/28 2200 Acetaminophen 650 MG .STK-MED ONE 08/28 1758 DC PO 08/28 1759 Acetaminophen 650 MG Q4P PRN 08/27 1615 AC 08/28 PO 2208 Acetaminophen 1,000 MG Q6H PRN 08/27 1615 AC N/A 1 UNIT IV Albuterol Sulfate 3 ML Q4P PRN 08/27 0900 AC 08/28 INH 1137 Apixaban 5 MG 0600,1800 08/28 1800 AC 08/29 PO 0509 Heparin Sodium 25,000 UNIT .STK-MED ONE 08/28 1527 DC (Porcine) IV 08/28 1528 Heparin Sodium 4,980 UNIT ONCE ONE 08/28 1210 DC 08/28 (Porcine) IV 08/28 1211 1210 Heparin Sodium 5,000 UNIT .STK-MED ONE 08/28 1157 DC (Porcine) IV 08/28 1158 Heparin Sodium 25,000 UNIT Q24H 08/26 1915 DC 08/28 (Porcine) IV 08/28 1900 1530 Sodium Chloride 500 ML Lisinopril 10 MG DAILY 08/27 1141 AC 08/28 PO 0941 Review of Systems Review of Systems: Patient denies headaches or dizziness. Patient denies nausea vomiting dysphagia or change in bowel habits or blood loss. Patient denies abdominal pain. Patient denies dysuria or hematuria. She denies focal neurologic deficit. 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 Home Who Do You Live With? spouse Primary Language: Montserratian Smoking Status: Never Smoked ETOH Use: denies use Illicit Drug Use: denies illicit drug use Living Will? no Exam & Diagnostic Data Vital Signs and I&O Vital Signs Date Time Temp Pulse Resp B/P B/P Pulse O2 O2 Flow FiO2 Mean Ox Delivery Rate 08/29 06 98.7 96 20 140/88 96 08/29 0000 94 Nasal 1.0L Cannula 08/28 2201 98.1 97 28 136/78 92 08/28 1927 Room Air 08/28 1600 93 Nasal 1.0L Cannula 08/28 1426 99.4 102 22 130/82 92 Room Air 08/28 1142 93 Room Air Room Air 08/28 0941 99 144/92 08/28 0800 94 Nasal 1.0L Cannula Intake & Output 08/29 0800 08/29 0000 08/28 1600 Intake Total 200 200 360 Output Total 125 Balance 200 75 360 Intake, Oral 200 200 360 Output, Urine 125 Gen.: in NAD ENT: Sclera anicteric Chest: Normal respiratory effort, decreased breath sounds Cor: RRR, no extra sounds Abdomen: Soft, bowel sounds present, no tenderness, no rebound, obese without masses or organomegaly Extremities: Without clubbing, cyanosis, chronic stasis changes bilaterally Neurology: Alert and oriented 3, no gross deficit Skin: No rashes Last 48 Hours of Lab Results: Laboratory Tests 08/29 08/28 08/28 08/27 0642 1815 1015 2100 Chemistry Sodium (137 - 145 mmol/L) Pending 143 Potassium (3.5 - 5.1 mmol/L) Pending 4.3 Chloride (98 - 107 mmol/L) Pending 104 Carbon Dioxide (22 - 30 mmol/L) Pending 29 Anion Gap (5 - 16) Pending 10 BUN (9 - 20 mg/dL) Pending 21 H Creatinine (0.7 - 1.2 mg/dL) Pending 0.9 Estimated GFR (>60 ml/min) > 60 BUN/Creatinine Ratio (7 - 25 %) Pending 23.3 Coagulation APTT (25 - 37 SEC) 55 H 54 H 66 H Hematology CBC w Diff Pending NO MAN DIFF REQ WBC (4.8 - 10.8 /CUMM) Pending 16.9 H RBC (4.70 - 6.10 /CUMM) Pending 4.37 L Hgb (14.0 - 18.0 G/DL) Pending 12.0 L Hct (42 - 52 %) Pending 37.3 L MCV (80.0 - 94.0 FL) Pending 85.5 MCH (27.0 - 31.0 PG) Pending 27.5 MCHC (33.0 - 37.0 G/DL) Pending 32.1 L RDW (11.5 - 14.5 %) Pending 15.6 H Plt Count (130 - 400 /CUMM) Pending 340 MPV (7.4 - 10.4 FL) Pending 8.0 Gran % (42.2 - 75.2 %) 77.2 H Lymphocytes % (20.5 - 51.1 %) 9.1 L Monocytes % (1.7 - 9.3 %) 11.3 H Eosinophils % (0 - 5 %) 2.0 Basophils % (0.0 - 2.0 %) 0.4 Absolute Granulocytes (1.4 - 6.5 /CUMM) 13.0 H Absolute Lymphocytes (1.2 - 3.4 /CUMM) 1.5 Absolute Monocytes (0.10 - 0.60 /CUMM) 1.9 H Absolute Eosinophils (0.0 - 0.7 /CUMM) 0.3 Absolute Basophils (0.0 - 0.2 /CUMM) 0.1 06 02/ 1110 1105 Coagulation APTT (25 - 37 SEC) 41 H Urines Urine Color (YEL,AMB,STR) YEL Urine Clarity (CLEAR) CLEAR Urine pH (5.0 - 8.0) 6.0 Ur Specific Adrian (1.001 - 1.035) 1.025 Urine Protein (NEG,<30 MG/DL) 30 H Urine Ketones (NEG) NEG Urine Nitrite (NEG) NEG Urine Bilirubin (NEG) NEG Urine Urobilinogen (0.1 - 1.0 EU/dl) 1.0 Ur Leukocyte Esterase (NEG) NEG Ur Microscopic SEDIMENT EXAMINED Urine RBC (0 - 5 /HPF) RARE Urine WBC (0 - 2 /HPF) RARE Ur Epithelial Cells (NONE,FEW) FEW Urine Bacteria (NEG/NONE) FEW H Urine Mucus (FEW,NONE) FEW Urine Hemoglobin (NEG) TRACE-INTACT H Urine Glucose (N MG/DL) NEG Imaging/Other Studies: OAI-gefuw-crfrmdebt pulmonary emboli, increased subcarinal and paraesophageal lymphadenopathy, questionable masslike in lingula, focal increased left adrenal process Doppler ultrasound-no DVT Abdominal ultrasound-to dramatic abnormalities Assessment/Plan Assessment: 1. Unprovoked pulmonary embolism not in the setting of DVT. At this point it is unclear as to the etiology of his thrombophilia. Of concern of the CAT scan findings as described above. Recommend- Conversion to oral anticoagulant Workup for thrombophilia to be conducted as an outpatient including workup for malignancy 2. Leukocytosis with left shift-careful review of the records, it just as far back as 2015 before meals has similar hemogram, ? Reactive process 3. Abnormal liver function tests-hepatitis serologies negative ? Etiology 4. Lymphadenopathy with ? Lingular process- Recommend- Will advocate for PET scan and then possible biopsy I have discussed this with the patient Recommendations: .. Consult Acknowledgment - Thank you for your consult request.
[2017-08-29 08:08] LABS: ABSOLUTE BASOPHIL COUNT 0 /CUMM (0.0-0.2); ABSOLUTE EOSINOPHIL COUNT 0.5 /CUMM (0.0-0.7); ABSOLUTE LYMPH COUNT 1.3 /CUMM (1.2-3.4); ABSOLUTE MONOCYTE COUNT 1.7 /CUMM (0.10-0.60); BASOPHIL % 0 % (0.0-2.0); EOSINOPHIL % 2.7 % (0-5); GRANULOCYTE % 79.9 % (42.2-75.2); HEMATOCRIT 36.3 % (42-52); MEAN CORPUSCULAR HGB 27.4 PG (27.0-31.0); MEAN CORPUSCULAR HGB CONC 32.3 G/DL (33.0-37.0); MEAN CORPUSCULAR VOLUME 85.1 FL (80.0-94.0); MEAN PLATELET VOLUME 7.6 FL (7.4-10.4); PLATELET COUNT 359 /CUMM (130-400); RBC DISTRIBUTION WIDTH 15.3 % (11.5-14.5); RED BLOOD CELL CT 4.26 /CUMM (4.70-6.10); WHITE BLOOD CELL COUNT 17.5 /CUMM (4.8-10.8)
[2017-08-29 08:31] VITALS: BP 140/88
[2017-08-29] MEDS ORDERED: ELIQUIS5 M1 PO ×3 (09:13→13:43)
[2017-08-29] MEDS ORDERED: LASIX20 M1 PO ×2 (09:23→09:24)
--- NOTE | 2017-08-29 11:10 | Discharge Summary ---
Visit Information Visit Dates Admission Date: 08/26/17 Discharge Date: 08/29/17 Hospital Course Course Attending Physician: Farida Moncada MD Primary Care Physician: Cyrus LE,Cyrus Hospital Course: Patient is a 62-year-old male with a PMH significant for HTN, chronic lower extremity swelling, who presents complaining of approximately one week of productive cough and shortness of breath. Patient stated that he had been treating with [id number] medication including NyQuil and Coricidin which initially provided relief however the symptoms then began to progressively worsened over the last several days. Patient reported greenish sputum production and shortness of breath mostly on exertion. During this time patient reported to being on line with his home medications including lisinopril and furosemide. He also notes that approximately 3 days ago he awoke with sharp 5/ 10 pain of his right knee she states limits his ability to walk normally. He stated that he does not recall any trauma to the area. Over the last month patient stated that he has been trying to lose weight on a low-carb, low sodium, high-protein diet and has lost 40 pounds. He attributes this solely to the diet and being active. He denies any chest pain, palpitations, nausea, vomiting, fever, chills. His was apparently sick with URI like symptoms 23 weeks ago. Hospital course 1. Pulmonary embolism on IV heparin Patient had a CTA on admission which shows right lower lobe pulmonary embolism. Ultrasound Doppler of lower legs was negative. Patient was started on IV heparin Which was eventually switched to Eliquis 5 mg twice a day. Patient refuses echocardiogram during the hospital admission. He is advised to follow- up with his primary care within 1-2 weeks of discharge. Patient had CT abdomen and pelvis which had multiple lymph node enlargement and small pulmonary nodule. Given the patient's leukocytosis/transaminitis with multiple lymph node enlargement ,he was seen by Dr. Painting who suggested an outpatient PET scan and possible biopsy. We will give her referral for the same. 2. Right knee pain Patient has right knee pain for 3 days. Patient also gives history of gout in his right greater toe. [never been diagnosed] uric acid was normal. X-ray right knee shows suprapatellar effusion. Orthopedic opinion was obtained over the phone who suggested to treat him empirically with NSAID/colchicine for his gout. He can follow up with Dr. Garces as outpatient. 3. Transaminitis Patient has elevated liver enzymes which was also present in last admission in 2015. Right upper quadrant ultrasound was negative. Off note patient was on low -carb high-protein diet for past 1 month and lost 40 pounds. Advised to follow- up with Dr. Sherwood as outpatient to rule out any malignancy. 4. Chronic bilateral leg swelling with stasis dermatitis Bilateral pulses felt. His bilateral leg swelling looks like chronic venous stasis. Advised emollient cream. Allergies: Coded Allergies: NO KNOWN ALLERGIES (06/01/15) Pertinent Lab Results: chest xray IMPRESSION: Stable enlargement of the cardiac silhouette. Low lung volumes. Prominent hilar markings, question related to low lung volumes. knee xray No acute osseous abnormality. Small to moderate suprapatellar joint effusion. Lateral compartment degenerative arthrosis. Dystrophic calcifications within the patellar tendon. CT abd & pelvis 1. Acute pulmonary embolism heterogeneous segment right lower lobe pulmonary artery. 2.. Mosaic perfusion bilateral lungs. Subpleural partially fatty-appearing nodular opacity lingular segment measuring 0.8 cm. Close monitoring with follow-up CT chest in [address] recommended. 3. Enlarged posterior mediastinal right paraesophageal lymph nodes.. Limited assessment of the adjacent esophagus. Clinical correlation and if needed endoscopic evaluation may be of value. 4. Enlarged subcarinal lymph node. 5. Punctate nonobstructing right renal calculi. 6. Focal enlargement left adrenal gland measuring 1.6 cm represents an interval change. It can be further assessed with dedicated adrenal CT scan or MRI. 7. Left inguinal hernia containing loop of sigmoid colon. No gross evidence of strangulation. Fat-containing right inguinal hernia. 8. Prominent external iliac and bilateral inguinal lymph nodes may represent reactive change. Clinical correlation and monitoring recommended. CTA IMPRESSION: 1. Acute pulmonary embolism heterogeneous segment right lower lobe pulmonary artery. 2.. Mosaic perfusion bilateral lungs. Subpleural partially fatty-appearing nodular opacity lingular segment measuring 0.8 cm. Close monitoring with follow-up CT chest in [address] recommended. 3. Enlarged posterior mediastinal right paraesophageal lymph nodes.. Limited assessment of the adjacent esophagus. Clinical correlation and if needed endoscopic evaluation may be of value. 4. Enlarged subcarinal lymph node. 5. Punctate nonobstructing right renal calculi. 6. Focal enlargement left adrenal gland measuring 1.6 cm represents an interval change. It can be further assessed with dedicated adrenal CT scan or MRI. 7. Left inguinal hernia containing loop of sigmoid colon. No gross evidence of strangulation. Fat-containing right inguinal hernia. 8. Prominent external iliac and bilateral inguinal lymph nodes may represent reactive change. Clinical correlation and monitoring recommended. DOPPLER US IMPRESSION: - There is no evidence of deep venous thrombosis involving the lower extremities. - There is a 7.7 x 2.0 x 2.5 cm right Dao's cyst and there is a 1.5 x 0.8 x 0.8 cm left Dao's cyst. US ABD IMPRESSION: 1. Pancreas obscured by overlying bowel gas. 2. A 0.5 cm gallbladder wall polyp versus tiny adherent noncalcified gallstone is seen in the gallbladder. Gallbladder otherwise unremarkable. No biliary dilatation. 3. Otherwise unremarkable exam. Disposition Summary Disposition Principal Diagnosis: Pulmonary embolism Additional Diagnosis: NONE Discharge Disposition: home or self care Discharge Instructions General Discharge Information Code Status: Full Code Patient's Diet: Heart healthy diet Patient's Activity: As tolerated Follow-Up Instructions/Appts: Please follow-up with your primary care provider, establishment guide, brim ironer hand. Medications at Discharge Discharge Medications: Stop taking the following medications: Ibuprofen (Ibuprofen) 200 MG TAB ORAL as needed for PAIN Continue taking these medications: Lisinopril (Lisinopril) 10 MG TAB 1 Tablet ORAL DAILY Qty = 30 Comments: Last Taken: 06/08/15 Time: 9 AM Furosemide (Lasix) 20 MG TABLET 1 Tablet ORAL DAILY Qty = 30 Comments: Last Taken: 08/29/17 Time: 1025 This prescription has been renewed Start taking the following new medications: Apixaban (Eliquis) 5 MG TABLET 5 Milligram ORAL 0600,1800 Qty = 60 Refills = 1 Instructions: .. Comments: Last Taken: 08/29/17 Copies To: Cyrus LE,Selin Mai MD,Kevin Madrid Attending MD Review Statement Documenting Attending: Farida Moncada MD Other Findings: Discharged in stable condition
== END 2017-08-29 12:20 | DRG 175 ==
LOC: ERH 11:10 → ERHI 19:35 → 1NO 19:35 → ENRESERV 22:27 → ENTRNSPT 22:39 → EDTRNSPT 22:46 → EDTRNSPTSTS 22:46 → 1NO 23:02 → CMPTRNSPT 08-27 07:23 → 1NO 08-27 07:33 → ENPENDDIS 08-29 09:44 → ENTRNSPT 08-29 11:55 → EDTRNSPTSTS 08-29 12:16 → EDTRNSPT 08-29 12:16 → 1NO 08-29 12:20 → CMPTRNSPT 08-29 12:25
PROVIDERS: Dermatology; Internal Medicine; Physician Assistant; Student in an Organized Health Care Education/Training Program
DX: I26.99 Other pulmonary embolism without acute cor pulmonale (principal); J18.9 Pneumonia, unspecified organism; E87.0 Hyperosmolality and hypernatremia; J06.9 Acute upper respiratory infection, unspecified; M25.561 Pain in right knee; R59.1 Generalized enlarged lymph nodes; N20.0 Calculus of kidney; I87.2 Venous insufficiency (chronic) (peripheral); R74.0 Nonspecific elevation of levels of transaminase and lactic acid dehydrogenase [LDH]; I10 Essential (primary) hypertension; D72.829 Elevated white blood cell count, unspecified
CPT/HCPCS: 1NSP; 36415; 71046; 73562-RT; 74177; 81001; 82436; 83010; 87040; 87070; 87086; 87804; 87804-59; 93005; 93010; 93970; 96374; 96375; 97116-GO; 97161-GP; 97530-GO; 99291; J0131; J0456; J0696; J1644; J7060

== ENCOUNTER 2017-12-04 22:16 | Emergency (ER) | payer OTHER ==
[~2017-12-04] VITALS: Ht 170.2 cm; Wt 149.7 kg
[~2017-12-04 22:16] MED LIST changes: +ELIQUIS5 M1 PO; +LASIX20 M1 PO
[2017-12-04] MEDS ORDERED: LISINOPRIL20 M1 PO (22:38)
--- NOTE | 2017-12-04 22:56 | ED ANKLE/FOOT INJURY COMPLAINT ---
History of Present Illness General Chief Complaint: Lower Extremity Problems Stated Complaint: BIBA, BLEEDING FROM FEET Source: patient, old records, EMS Exam Limitations: no limitations Vital Signs & Intake/Output Vital Signs & Intake/Output Vital Signs Date Time Temp Pulse Resp B/P B/P Pulse O2 O2 Flow FiO2 Mean Ox Delivery Rate 12/04 2335 98.4 107 20 167/82 97 Room Air 12/04 2311 180/108 12/04 2222 98.9 122 20 188/102 99 ED Intake and Output 12/05 0000 12/04 1200 Intake Total Output Total Balance Patient 330 lb Weight Weight Estimated Measurement Method Allergies Coded Allergies: NO KNOWN ALLERGIES (06/01/15) Reconcile Medications Apixaban (Eliquis) 5 MG TABLET 5 MG PO 0600,1800 PULMONARY EMBOLISM .. Furosemide (Lasix) 20 MG TABLET 1 TAB PO DAILY leg edema Lisinopril 20 MG TABLET 1 TAB PO DAILY HIGH BLOOD PRESSURE (Reported) Lisinopril 10 MG TAB 1 TAB PO DAILY High blood pressure Triage Note: DID NOT RECEIVE REPORT FROM EMS. PER PT,WAS WALKING AROUND TODAY AND WHILE SITTING AT HOME FELT WETNESS BY HIS FEET. PT STATED THAT HE HAS NORMALLY DRY FEET AND NOTICED " A POOL PF BLOOD". PT ARRIVED WITH BILATERAL FEET WRAPPED IN GAUZE. GAUZE REMOVED AND FEET VCLEANED WITH WIPES, NO ACTIVE BLEEDING NOTED AT THIS TIME. PT REPORTS BEING ON ELIQUIS. PT ASLO ARRIVED HYPERTENSIVE, PT STATES THAT NORMALLY IS HYPERTENSIVE. PT PLACED ON MONITOR, ST NOTED. BP ELEVATED AUTO AND MANUAL. PT A+OX3, MAEX4. Triage Nurses Notes Reviewed? yes Occurred: just prior to arrival Duration: minute(s):, constant, gone now Timing: recent history Severity: severe Pain/Injury Location: Bilateral: Foot. Method of Injury: unknown Modifying Factors: Improves With: other (Pressure dressing). Associated Symptoms: GCS 15 since HPI: The patient reports being on his feet most of the day. Prior to admission after washing and drying his feet he got up and felt there were still wet. He noted squirting blood from the medial aspects of both feet. He called EMS and they were wrapped. Denies fever chills nausea vomiting diarrhea abdominal pain chest pain shortness of breath headache dysuria. Past History Travel History Traveled to [place] past 21 day No Medical History Any Pertinent Medical History? 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 No Review of Systems Review of Systems Constitutional: Reports: no symptoms. EENTM: Reports: no symptoms. Respiratory: Reports: no symptoms. Cardiovascular: Reports: no symptoms. GI: Reports: no symptoms. Genitourinary: Reports: no symptoms. Musculoskeletal: Reports: no symptoms. Skin: Reports: see HPI, rash. Neurological/Psychological: Reports: no symptoms. Hematologic/Endocrine: Reports: no symptoms. Immunologic/Allergic: Reports: no symptoms. All Other Systems: Reviewed and Negative Physical Exam Physical Exam General Appearance: well developed/nourished, alert, awake, comfortable, obese Head: atraumatic, normal appearance Eyes: Bilateral: normal appearance, PERRL, EOMI. Ears, Nose, Throat: normal pharynx, normal ENT inspection, hearing grossly normal Neck: normal inspection, supple, full range of motion, no midline tenderness Cardiovascular/Respiratory: normal breath sounds, normal peripheral pulses, regular rate/rhythm, no respiratory distress Back: normal inspection, normal range of motion Leg/Knee/Thigh Left: normal range of motion, normal inspection, stasis dermatitis Leg/Knee/Thigh Right: normal range of motion, normal inspection, stasis dermatitis Ankle Left: normal range of motion, swelling Ankle Right: normal range of motion, swelling Foot Left: normal range of motion, swelling, prominent varicose veins Foot Right: normal range of motion, swelling, prominent varicose veins Reflexes: 2+: knee (R), knee (L). Neuro/Vascular: normal motor function, normal sensation Psychiatric: awake, alert, oriented x 3 Skin: intact, normal color, warm/dry Progress Differential Diagnosis: varicose vein bleeding Plan of Care: Orders Procedure Date/time Status PARTIAL THROMBOPLASTIN TIME 12/05 2243 Complete PROTHROMBIN TIME 12/05 2243 Complete COMPREHENSIVE METABOLIC PANEL 12/05 2243 Complete CBC WITHOUT DIFFERENTIAL 12/05 2243 Complete Laboratory Tests 12/04/17 2300: Anion Gap 11, Estimated GFR > 60, BUN/Creatinine Ratio 19.2, Glucose 120 H, Calcium 9.4, Total Bilirubin 0.6, AST 24, ALT 27, Alkaline Phosphatase 101, Total Protein 7.3, Albumin 4.0, Globulin 3.3, Albumin/Globulin Ratio 1.2, PT 13.8 H, INR 1.26 H, APTT 32, CBC w Diff NO MAN DIFF REQ, RBC 4.80, MCV 84.8, MCH 27.7, MCHC 32.6 L, RDW 17.3 H, MPV 6.7 L, Gran % 77.3 H, Lymphocytes % 9.7 L, Monocytes % 9.9 H, Eosinophils % 2.9, Basophils % 0.2, Absolute Granulocytes 9.5 H, Absolute Lymphocytes 1.2, Absolute Monocytes 1.2 H, Absolute Eosinophils 0.4, Absolute Basophils 0 Departure Departure Time of Disposition: 2347 Disposition: HOME OR SELF CARE Condition: Stable Clinical Impression Primary Impression: Varicose veins of both lower extremities with complications Secondary Impressions: Hypertension Referrals: Cyrus Bridges MD (PCP/Family) Departure Forms: Customer Survey General Discharge Information
[2017-12-04 23:17] LABS: ABSOLUTE BASOPHIL COUNT 0 /CUMM (0.0-0.2); ABSOLUTE EOSINOPHIL COUNT 0.4 /CUMM (0.0-0.7); ABSOLUTE GRANULOCYTE CT 9.5 /CUMM (1.4-6.5); ABSOLUTE LYMPH COUNT 1.2 /CUMM (1.2-3.4); ABSOLUTE MONOCYTE COUNT 1.2 /CUMM (0.10-0.60); BASOPHIL % 0.2 % (0.0-2.0); EOSINOPHIL % 2.9 % (0-5); GRANULOCYTE % 77.3 % (42.2-75.2); HEMATOCRIT 40.7 % (42-52); MEAN CORPUSCULAR HGB 27.7 PG (27.0-31.0); MEAN CORPUSCULAR HGB CONC 32.6 G/DL (33.0-37.0); MEAN CORPUSCULAR VOLUME 84.8 FL (80.0-94.0); MEAN PLATELET VOLUME 6.7 FL (7.4-10.4); PLATELET COUNT 292 /CUMM (130-400); RBC DISTRIBUTION WIDTH 17.3 % (11.5-14.5); WHITE BLOOD CELL COUNT 12.3 /CUMM (4.8-10.8)
[2017-12-04 23:26] LABS: PT 13.8 SEC (9.4-12.5); PTT 32 SEC (25-37)
[2017-12-04 23:35] VITALS: BP 167/82
== END 2017-12-05 00:22 ==
LOC: ERH 22:16
PROVIDERS: Emergency Medicine
DX: I83.893 Varicose veins of bilateral lower extremities with other complications (principal); I10 Essential (primary) hypertension
CPT/HCPCS: 96374